=== PATIENT | male | born 1930 | race Caucasian/White ===

== ENCOUNTER 2018-05-09 13:02 | Inpatient (IN) | payer BC ==
[~2018-05-09] VITALS: Ht 182.9 cm; Wt 78.9 kg
[~2018-05-09 13:02] MED LIST: ALEN70TA55 PO; ALLO300T2 PO; ASPI-498 PO; CHOL20007 PO; FLUO-125 PO; FURO20TA3 PO; GABA100C9 PO; HYDR-3682 PO; LANT500C PO; MUPI2CRE17 EX; OME20T PO
[2018-05-09] MEDS ORDERED: SODIUM CHLORIDE 0.9% 1,000 ML IV ONE (13:17)
[2018-05-09 14:28] LABS: Basophils # (auto) 0 uL; Basophils % (auto) 0.6 % (0.0-2.0); Eosinophils # (auto) 0 uL; Hemoglobin 9.5 g/dL (13.5-17.5); Lymphocytes # (auto) 0.5 uL; Mean Corpuscular Hgb Conc. 32.3 g/dL (32.0-36.0); Neutrophils # (auto) 3.8 uL; Red Blood Cells 2.77 10^6/uL (4.5-5.90); White Blood Cell 4.9 10^3/uL (4.4-10.8)
[2018-05-09 14:30] LABS: Eosinophils % (auto) 0.8 % (0.0-7.0); Hematocrit 29.5 % (41.0-53.0); Lymphocytes % (auto) 9.6 % (10.0-50.0); Mean Corpuscular Hemoglobin 34.3 pg (28.0-32.0); Mean Corpuscular Volume 106.4 fL (80.0-100.0); Monocytes # (auto) 0.5 uL; Monocytes % (auto) 10.4 % (0.0-12.0); Neutrophils % (auto) 78.6 % (37.0-80.0); Nucleated Red Blood Cells % 0.1 %; Platelet Count (auto) 175 10^3/uL (140-450); Red Cell Distribution Width 16.7 % (11.8-14.3)
[2018-05-09 14:36] LABS: Lactic Acid w/Reflex 2.4 mmol/L (0.4-2.0)
[2018-05-09 14:37] LABS: INR 1.05 (0.9-1.15); Partial Thromboplastin Time 31.5 sec (23.78-33.04); Prothrombin Time 11.2 sec (9.27-12.13)
[2018-05-09 15:11] LABS: Albumin 2.5 g/dL (3.4-5.0); BUN/Creatinine Ratio 7.4; Bilirubin, Total 0.6 mg/dL (0.2-1.0); Calcium 7.7 mg/dL (8.5-10.1); Potassium 3.8 mmol/L (3.5-5.1); Total Protein 6.6 g/dL (6.4-8.2)
[2018-05-09] MEDS ORDERED: ceFAZolin 1GM/50ML 50 ML IV ONE (15:30)
[2018-05-09] MEDS ORDERED: MORPHINE SULF INJ 2 MG/ML SYRINGE 1ML IV PRN ×2 (15:30)
[2018-05-09] MEDS ORDERED: HYDROcodone-ACET 5/325MG TAB PO PRN (15:30)
[2018-05-09] MEDS ORDERED: ONDANSETRON HCL 4 MG/2 ML VIAL IV PRN (15:30)
[2018-05-09] MEDS ORDERED: hydrOXYzine 25 MG TAB or CAP PO PRN (15:30)
[2018-05-09] MEDS ORDERED: NITROGLYCERIN 0.4 MG SL TAB SL PRN (15:30)
[2018-05-09] MEDS: ceFAZolin 1GM/50ML 50 ML IV SCH ×2 (16:27→22:00)
[2018-05-09 22:12] VITALS: BP 115/57
[2018-05-10 04:37] VITALS: BP 112/57
[2018-05-10 06:29] LABS: BUN/Creatinine Ratio 8.6; Calcium 7.7 mg/dL (8.5-10.1); Potassium 3.8 mmol/L (3.5-5.1)
[2018-05-10] MEDS: ceFAZolin 1GM/50ML 50 ML IV SCH ×3 (06:38→22:54)
[2018-05-10 08:00] VITALS: BP 106/58
[2018-05-10 08:37] VITALS: BP 106/58
[2018-05-10] MEDS ORDERED: SODIUM CHLORIDE 0.9% 500 ML IV ONE (10:00)
[2018-05-10] MEDS ORDERED: SODIUM CHLORIDE 0.9% 1,000 ML IV SCH (10:00)
[2018-05-10] MEDS: GABAPENTIN 100 MG CAP PO SCH (10:02)
[2018-05-10] MEDS: ALLOPURINOL 100 MG TAB PO SCH (10:02)
[2018-05-10] MEDS: PANTOPRAZOLE 40 MG TAB PO SCH (10:02)
[2018-05-10] MEDS: ASPirin 81 mg TAB PO SCH (10:03)
[2018-05-10] MEDS: FLUoxetine HCL 20 MG CAP PO SCH (10:03)
[2018-05-10] MEDS ORDERED: LORazepam 2MG/ML-1ML VIAL IV ONE (10:30)
[2018-05-10] MEDS ORDERED: SODIUM CHL 0.9% 1000 ML BAG XX ONE (11:00)
[2018-05-10] MEDS ORDERED: EPOETIN ALFA 10,000 UNIT/1 ML VIAL IV ONE (11:00)
[2018-05-10 12:00] VITALS: BP 111/55
[2018-05-10] MEDS: FUROSEMIDE 20 MG/2 ML VIAL IV SCH ×2 (15:21→18:00)
[2018-05-10 15:57] VITALS: BP 108/62
[2018-05-10] MEDS: CLINDAMYCIN 600MG IV 50 ML IV SCH ×2 (16:38→22:06)
[2018-05-10] MEDS ORDERED: ALBUMIN 25% 100 ML IV ONE (19:00)
[2018-05-10] MEDS ORDERED: MIDODRINE HCL 10 MG TAB PO ONE (19:45)
[2018-05-10 21:52] VITALS: BP 92/57
[2018-05-11] MEDS ORDERED: SODIUM BICARBONATE 8.4 % INJ 50ML VIAL IV ONE (02:25)
[2018-05-11 04:47] VITALS: BP 101/52
[2018-05-11] MEDS: CLINDAMYCIN 600MG IV 50 ML IV SCH ×3 (05:10→21:41)
[2018-05-11 05:48] LABS: Basophils # (auto) 0 uL; Eosinophils # (auto) 0.1 uL; Lymphocytes # (auto) 0.3 uL; Mean Corpuscular Volume 105.7 fL (80.0-100.0); Monocytes # (auto) 0.5 uL; Neutrophils # (auto) 3.4 uL; Platelet Count (auto) 151 10^3/uL (140-450)
[2018-05-11 05:52] LABS: Basophils % (auto) 0.1 % (0.0-2.0); Eosinophils % (auto) 1.7 % (0.0-7.0); Hematocrit 27.1 % (41.0-53.0); Lymphocytes % (auto) 6.2 % (10.0-50.0); Mean Corpuscular Hemoglobin 34.9 pg (28.0-32.0); Mean Corpuscular Hgb Conc. 33.1 g/dL (32.0-36.0); Monocytes % (auto) 12.6 % (0.0-12.0); Neutrophils % (auto) 79.4 % (37.0-80.0); Nucleated Red Blood Cells % 0.1 %; Red Blood Cells 2.56 10^6/uL (4.5-5.90); White Blood Cell 4.3 10^3/uL (4.4-10.8)
[2018-05-11 06:05] LABS: INR 1.07 (0.9-1.15); Partial Thromboplastin Time 33.6 sec (23.78-33.04); Prothrombin Time 11.4 sec (9.27-12.13)
[2018-05-11 06:07] LABS: BUN/Creatinine Ratio 7.1; Calcium 7.7 mg/dL (8.5-10.1); Phosphorus 3.9 mg/dL (2.5-4.90); Potassium 3.8 mmol/L (3.5-5.1)
[2018-05-11] MEDS: FUROSEMIDE 20 MG/2 ML VIAL IV SCH ×2 (06:20→17:31)
[2018-05-11] MEDS: ceFAZolin 1GM/50ML 50 ML IV SCH (06:20)
[2018-05-11 09:00] VITALS: BP 97/59
[2018-05-11] MEDS: GABAPENTIN 100 MG CAP PO SCH (09:58)
[2018-05-11] MEDS: FLUoxetine HCL 20 MG CAP PO SCH (09:58)
[2018-05-11] MEDS: ASPirin 81 mg TAB PO SCH (09:58)
[2018-05-11] MEDS: PANTOPRAZOLE 40 MG TAB PO SCH (09:58)
[2018-05-11] MEDS: ALLOPURINOL 100 MG TAB PO SCH (09:58)
[2018-05-11] MEDS: MULTIPLE VITAMINS W/ MINERALS TAB PO SCH (09:58)
[2018-05-11] MEDS ORDERED: LEVOFLOXACIN 500MG 100 ML IV ONE (10:00)
[2018-05-11] MEDS ORDERED: CLIN1CAP4 PO (11:06)
[2018-05-11] MEDS ORDERED: LEVO250T45 PO (11:06)
[2018-05-11 13:00] VITALS: BP 113/49
[2018-05-11 17:00] VITALS: BP 100/51
[2018-05-11 20:47] VITALS: BP 93/52
[2018-05-12 04:59] VITALS: BP 97/50
[2018-05-12] MEDS: CLINDAMYCIN 600MG IV 50 ML IV SCH ×2 (05:36→14:23)
[2018-05-12] MEDS: FUROSEMIDE 20 MG/2 ML VIAL IV SCH (05:37)
[2018-05-12 09:00] VITALS: BP 87/47
[2018-05-12] MEDS: PANTOPRAZOLE 40 MG TAB PO SCH (09:42)
[2018-05-12] MEDS: ALLOPURINOL 100 MG TAB PO SCH (09:42)
[2018-05-12] MEDS: FLUoxetine HCL 20 MG CAP PO SCH (09:42)
[2018-05-12] MEDS: ASPirin 81 mg TAB PO SCH (09:42)
[2018-05-12] MEDS: GABAPENTIN 100 MG CAP PO SCH (09:42)
[2018-05-12] MEDS: MULTIPLE VITAMINS W/ MINERALS TAB PO SCH (09:42)
[2018-05-12] MEDS ORDERED: LEVOFLOXACIN 250MG 50 ML IV SCH (10:00)
[2018-05-12 13:00] VITALS: BP 101/58
[2018-05-12 14:11] VITALS: BP 101/58
[2018-05-12 17:00] VITALS: BP 100/51
== END 2018-05-12 17:30 | disposition home health service (06) | DRG 871 ==
LOC: ER 13:02 → TELE 13:03 → TELE-CENTR 20:14
PROVIDERS: ADMIT Internal Medicine; ATTEND Internal Medicine
PROC: 5A1D70Z Performance of Urinary Filtration, Intermittent, Less than 6 Hours Per Day (ICD-10-PCS; principal; 2018-05-10)
DX: A41.9 Sepsis, unspecified organism (principal); I50.43 Acute on chronic combined systolic (congestive) and diastolic (congestive) heart failure; N18.6 End stage renal disease; L03.115 Cellulitis of right lower limb; J96.10 Chronic respiratory failure, unspecified whether with hypoxia or hypercapnia; E44.0 Moderate protein-calorie malnutrition; I13.2 Hypertensive heart and chronic kidney disease with heart failure and with stage 5 chronic kidney disease, or end stage renal disease; M86.8X7 Other osteomyelitis, ankle and foot; I27.20 Pulmonary hypertension, unspecified; D63.1 Anemia in chronic kidney disease; F32.9 Major depressive disorder, single episode, unspecified; I07.1 Rheumatic tricuspid insufficiency; I25.10 Atherosclerotic heart disease of native coronary artery without angina pectoris; I48.91 Unspecified atrial fibrillation; I73.9 Peripheral vascular disease, unspecified; I87.8 Other specified disorders of veins; J44.9 Chronic obstructive pulmonary disease, unspecified; K21.9 Gastro-esophageal reflux disease without esophagitis; G62.9 Polyneuropathy, unspecified; M10.9 Gout, unspecified; M19.90 Unspecified osteoarthritis, unspecified site; M72.2 Plantar fascial fibromatosis; M77.30 Calcaneal spur, unspecified foot; M85.80 Other specified disorders of bone density and structure, unspecified site; Z86.73 Personal history of transient ischemic attack (TIA), and cerebral infarction without residual deficits; Z99.2 Dependence on renal dialysis; Z95.1 Presence of aortocoronary bypass graft; Z79.82 Long term (current) use of aspirin; Z79.899 Other long term (current) drug therapy; Z68.23 Body mass index [BMI] 23.0-23.9, adult
CPT/HCPCS: 36415; 71045; 73700; 73718; 80048; 80053; 83605; 83735; 83880; 84100; 84484; 84550; 85025; 85610; 85730; 87040; 87081; 90935; 93005; 93926; 96361; 96365; J0690; J0885; J1642; J1956; J3490; P9047

== ENCOUNTER 2018-05-16 11:34 | Inpatient (IN) | payer BC ==
[~2018-05-16] VITALS: Ht 182.9 cm; Wt 84.0 kg
[~2018-05-16 11:34] MED LIST changes: +ALEN1TAB32 PO; -ALEN70TA55 PO; +CLIN1CAP4 PO; +LEVO250T19 PO
[2018-05-16 12:55] LABS: Basophils # (auto) 0 uL; Eosinophils # (auto) 0 uL; Eosinophils % (auto) 0.1 % (0.0-7.0); Hemoglobin 9.9 g/dL (13.5-17.5); Monocytes # (auto) 0.5 uL; Red Cell Distribution Width 16.4 % (11.8-14.3)
[2018-05-16 12:57] LABS: Basophils % (auto) 0.4 % (0.0-2.0); Lymphocytes # (auto) 0.2 uL; Lymphocytes % (auto) 3.2 % (10.0-50.0); Mean Corpuscular Hgb Conc. 33.1 g/dL (32.0-36.0); Mean Corpuscular Volume 105.7 fL (80.0-100.0); Monocytes % (auto) 9.6 % (0.0-12.0); Neutrophils # (auto) 4.5 uL; Neutrophils % (auto) 86.7 % (37.0-80.0); Nucleated Red Blood Cells % 0.5 %; Platelet Count (auto) 173 10^3/uL (140-450); Red Blood Cells 2.84 10^6/uL (4.5-5.90); White Blood Cell 5.2 10^3/uL (4.4-10.8)
[2018-05-16 13:08] LABS: INR 1.17 (0.9-1.15); Partial Thromboplastin Time 30.3 sec (23.78-33.04); Prothrombin Time 12.4 sec (9.27-12.13)
[2018-05-16 13:11] LABS: Albumin 2.3 g/dL (3.4-5.0); Anion Gap 9 (5-15); Blood Urea Nitrogen 25 mg/dL (7-18); Calcium 7.9 mg/dL (8.5-10.1); Carbon Dioxide 32 mmol/L (21-32); Chloride 99 mmol/L (98-107); Glucose 131 mg/dL (74-106); Potassium 3.6 mmol/L (3.5-5.1); Sodium 140 mmol/L (136-145)
[2018-05-16 13:13] LABS: BUN/Creatinine Ratio 7.5; GFR African American 23 mL/min; GFR Non-African American 19 mL/min
[2018-05-16 13:30] LABS: Alanine Aminotransferase < 6 U/L (16-61); Alkaline Phosphatase 184 U/L (45-117); Aspartate Aminotransferase 29 U/L (15-37); Bilirubin, Total 0.7 mg/dL (0.2-1.0); Total Protein 6.2 g/dL (6.4-8.2)
[2018-05-16] MEDS ORDERED: NITROGLYCERIN 0.4 MG SL TAB SL PRN (14:00)
[2018-05-16] MEDS ORDERED: HYDROcodone-ACET 5/325MG TAB PO PRN (14:00)
[2018-05-16] MEDS ORDERED: MORPHINE SULF INJ 2 MG/ML SYRINGE 1ML IV PRN (14:00)
[2018-05-16] MEDS ORDERED: FUROSEMIDE 40 MG TAB PO ONE (14:00)
[2018-05-16] MEDS ORDERED: ONDANSETRON HCL 4 MG/2 ML VIAL IV PRN (14:15)
[2018-05-16] MEDS ORDERED: ONDANSETRON HCL 4 MG/2 ML VIAL ONE (14:15)
[2018-05-16] MEDS: ceFAZolin 1GM/50ML 50 ML IV SCH ×2 (15:15→22:07)
[2018-05-16 20:00] VITALS: BP 138/53
[2018-05-16 22:00] VITALS: BP 138/53
[2018-05-16] MEDS: ATORVASTATIN 20 MG TAB PO SCH (22:06)
[2018-05-17 05:00] VITALS: BP 118/59
[2018-05-17] MEDS: ceFAZolin 1GM/50ML 50 ML IV SCH ×3 (06:03→21:38)
[2018-05-17 06:42] LABS: BUN/Creatinine Ratio 8.3; Calcium 7.9 mg/dL (8.5-10.1); Potassium 3.6 mmol/L (3.5-5.1)
[2018-05-17] MEDS: GABAPENTIN 100 MG CAP PO SCH (10:50)
[2018-05-17] MEDS: FUROSEMIDE 40 MG TAB PO SCH (10:50)
[2018-05-17] MEDS: ASPirin 81 mg TAB PO SCH (10:50)
[2018-05-17] MEDS: FAMOTIDINE 20 MG TAB PO SCH (10:50)
[2018-05-17] MEDS: FLUoxetine HCL 20 MG CAP PO SCH (10:50)
[2018-05-17] MEDS: ALLOPURINOL 100 MG TAB PO SCH (10:50)
[2018-05-17] MEDS ORDERED: HEPARIN SODIUM (PORCINE) 5000 UNITS/ML 1ML VIAL IV ONE (12:30)
[2018-05-17 12:57] VITALS: BP 114/55
[2018-05-17 13:02] LABS: Basophils # (auto) 0 uL; Lymphocytes # (auto) 0.5 uL; Monocytes # (auto) 0.6 uL
[2018-05-17 13:04] LABS: Basophils % (auto) 0.6 % (0.0-2.0); Eosinophils # (auto) 0.1 uL; Hematocrit 30.8 % (41.0-53.0); Hemoglobin 10.1 g/dL (13.5-17.5); Lymphocytes % (auto) 9.1 % (10.0-50.0); Mean Corpuscular Hgb Conc. 32.9 g/dL (32.0-36.0); Monocytes % (auto) 10.4 % (0.0-12.0); Neutrophils # (auto) 4.3 uL; Neutrophils % (auto) 78.9 % (37.0-80.0); Nucleated Red Blood Cells % 0.5 %; Platelet Count (auto) 173 10^3/uL (140-450); Red Blood Cells 2.88 10^6/uL (4.5-5.90); Red Cell Distribution Width 16.5 % (11.8-14.3); White Blood Cell 5.4 10^3/uL (4.4-10.8)
[2018-05-17 13:05] LABS: Mean Corpuscular Hemoglobin 34.8 pg (28.0-32.0); Mean Corpuscular Volume 106.8 fL (80.0-100.0)
[2018-05-17 13:14] LABS: INR 1.13 (0.9-1.15)
[2018-05-17] MEDS: HEPARIN DRIP/D5W 100UNITS/ML 250 ML IV SCH (13:25)
[2018-05-17 16:19] VITALS: BP 131/77
[2018-05-17 20:00] VITALS: BP 114/75
[2018-05-17] MEDS: ATORVASTATIN 20 MG TAB PO SCH (21:38)
[2018-05-17 22:00] VITALS: BP 114/75
[2018-05-18 02:15] LABS: INR 1.13 (0.9-1.15); Partial Thromboplastin Time 59.4 sec (23.78-33.04)
[2018-05-18 04:39] VITALS: BP 126/79
[2018-05-18] MEDS: ceFAZolin 1GM/50ML 50 ML IV SCH ×3 (05:53→22:13)
[2018-05-18 08:59] LABS: Basophils # (auto) 0 uL; Basophils % (auto) 0.4 % (0.0-2.0); Eosinophils # (auto) 0.1 uL; Eosinophils % (auto) 1.7 % (0.0-7.0); Hematocrit 33.8 % (41.0-53.0); Hemoglobin 10.1 g/dL (13.5-17.5); Lymphocytes # (auto) 0.6 uL; Lymphocytes % (auto) 11.2 % (10.0-50.0); Mean Corpuscular Hgb Conc. 29.9 g/dL (32.0-36.0); Mean Corpuscular Volume 113.7 fL (80.0-100.0); Monocytes # (auto) 0.7 uL; Monocytes % (auto) 12.9 % (0.0-12.0); Neutrophils # (auto) 3.7 uL; Neutrophils % (auto) 73.8 % (37.0-80.0); Nucleated Red Blood Cells % 0.6 %; Platelet Count (auto) 135 10^3/uL (140-450); Red Blood Cells 2.97 10^6/uL (4.5-5.90); Red Cell Distribution Width 17.9 % (11.8-14.3); White Blood Cell 5.1 10^3/uL (4.4-10.8)
[2018-05-18 09:15] VITALS: BP 129/53
[2018-05-18] MEDS: ASPirin 81 mg TAB PO SCH (10:21)
[2018-05-18] MEDS: FUROSEMIDE 40 MG TAB PO SCH (10:21)
[2018-05-18] MEDS: GABAPENTIN 100 MG CAP PO SCH (10:22)
[2018-05-18] MEDS: ALLOPURINOL 100 MG TAB PO SCH (10:22)
[2018-05-18] MEDS: FAMOTIDINE 20 MG TAB PO SCH (10:22)
[2018-05-18] MEDS: FLUoxetine HCL 20 MG CAP PO SCH (10:22)
[2018-05-18] MEDS ORDERED: SODIUM CHL 0.9% 1000 ML BAG XX ONE (11:15)
[2018-05-18] MEDS ORDERED: EPOETIN ALFA 10,000 UNIT/1 ML VIAL IV ONE (11:15)
[2018-05-18 11:36] LABS: INR 1.15 (0.9-1.15); Prothrombin Time 12.2 sec (9.27-12.13)
[2018-05-18 11:43] LABS: Partial Thromboplastin Time 70.4 sec (23.78-33.04)
[2018-05-18 11:50] LABS: Phosphorus 6.3 mg/dL (2.5-4.90); Uric Acid 4.3 mg/dL (3.5-7.2)
[2018-05-18 12:50] VITALS: BP 134/71
[2018-05-18] MEDS: HEPARIN DRIP/D5W 100UNITS/ML 250 ML IV SCH (12:51)
[2018-05-18 16:40] LABS: INR 1.13 (0.9-1.15); Partial Thromboplastin Time 64.6 sec (23.78-33.04)
[2018-05-18 17:14] VITALS: BP 145/63
[2018-05-18 20:00] VITALS: BP 129/53
[2018-05-18 22:00] VITALS: BP 143/61
[2018-05-18] MEDS: ATORVASTATIN 20 MG TAB PO SCH (22:13)
[2018-05-19] MEDS: HEPARIN DRIP/D5W 100UNITS/ML 250 ML IV SCH (03:17)
[2018-05-19 05:00] VITALS: BP 109/47
[2018-05-19] MEDS: ceFAZolin 1GM/50ML 50 ML IV SCH ×3 (05:36→21:53)
[2018-05-19 06:58] LABS: INR 1.16 (0.9-1.15); Prothrombin Time 12.3 sec (9.27-12.13)
[2018-05-19 07:02] LABS: Partial Thromboplastin Time 84.3 sec (23.78-33.04)
[2018-05-19 09:00] VITALS: BP 102/61
[2018-05-19] MEDS: DOCUSATE SOD 100 MG CAP PO SCH ×2 (10:00→21:54)
[2018-05-19] MEDS: FAMOTIDINE 20 MG TAB PO SCH (10:00)
[2018-05-19] MEDS: FLUoxetine HCL 20 MG CAP PO SCH (10:11)
[2018-05-19] MEDS: GABAPENTIN 100 MG CAP PO SCH (10:11)
[2018-05-19] MEDS: FUROSEMIDE 40 MG TAB PO SCH (10:12)
[2018-05-19] MEDS: ASPirin 81 mg TAB PO SCH (10:12)
[2018-05-19] MEDS: ALLOPURINOL 100 MG TAB PO SCH (10:12)
[2018-05-19 13:00] VITALS: BP 102/52
[2018-05-19 14:08] LABS: INR 1.14 (0.9-1.15); Partial Thromboplastin Time 56.5 sec (23.78-33.04); Prothrombin Time 12.1 sec (9.27-12.13)
[2018-05-19 17:00] VITALS: BP 143/91
[2018-05-19] MEDS: SUCRALFATE 1 GM/10 ML ORAL SUSP GT SCH (17:24)
[2018-05-19] MEDS: Pro-Stat SF 30ml Vanilla PO SCH (18:00)
[2018-05-19] MEDS: Nepro With Carbsteady ButterPecan 8oz Carton PO SCH (18:00)
[2018-05-19 20:06] LABS: INR 1.12 (0.9-1.15); Partial Thromboplastin Time 55.8 sec (23.78-33.04); Prothrombin Time 11.9 sec (9.27-12.13)
[2018-05-19] MEDS: B-COMPLEX W/ C & FOLIC ACID(NEPHROVITE TAB) PO SCH (21:53)
[2018-05-19] MEDS: ATORVASTATIN 20 MG TAB PO SCH (21:54)
[2018-05-19] MEDS: ASCORBIC ACID 500 MG TAB PO SCH (21:54)
[2018-05-19 22:00] VITALS: BP 111/57
[2018-05-20] MEDS ORDERED: SODIUM CHL 0.9% 1000 ML BAG XX ONE (04:00)
[2018-05-20] MEDS ORDERED: EPOETIN ALFA 10,000 UNIT/1 ML VIAL IV ONE (04:00)
[2018-05-20 04:51] VITALS: BP 124/65
[2018-05-20] MEDS: SUCRALFATE 1 GM/10 ML ORAL SUSP GT SCH ×2 (06:35→18:55)
[2018-05-20] MEDS: ceFAZolin 1GM/50ML 50 ML IV SCH ×3 (06:39→22:18)
[2018-05-20 07:09] LABS: Basophils # (auto) 0 uL; Monocytes # (auto) 0.6 uL; Monocytes % (auto) 14.2 % (0.0-12.0); Neutrophils # (auto) 3.4 uL; Nucleated Red Blood Cells % 0.2 %; White Blood Cell 4.5 10^3/uL (4.4-10.8)
[2018-05-20 07:11] LABS: Basophils % (auto) 0.6 % (0.0-2.0); Eosinophils # (auto) 0.1 uL; Eosinophils % (auto) 1.3 % (0.0-7.0); Hematocrit 27.9 % (41.0-53.0); Hemoglobin 9.1 g/dL (13.5-17.5); Lymphocytes # (auto) 0.3 uL; Lymphocytes % (auto) 7.8 % (10.0-50.0); Mean Corpuscular Hemoglobin 34.8 pg (28.0-32.0); Mean Corpuscular Hgb Conc. 32.7 g/dL (32.0-36.0); Mean Corpuscular Volume 106.5 fL (80.0-100.0); Neutrophils % (auto) 76.1 % (37.0-80.0); Platelet Count (auto) 133 10^3/uL (140-450); Red Blood Cells 2.62 10^6/uL (4.5-5.90); Red Cell Distribution Width 16.6 % (11.8-14.3)
[2018-05-20 07:17] LABS: BUN/Creatinine Ratio 8.1; Calcium 7.8 mg/dL (8.5-10.1); Magnesium 2.6 mg/dL (1.6-2.6)
[2018-05-20] MEDS: Nepro With Carbsteady ButterPecan 8oz Carton PO SCH ×2 (08:00→18:00)
[2018-05-20] MEDS: Pro-Stat SF 30ml Vanilla PO SCH ×2 (08:00→18:00)
[2018-05-20 08:29] VITALS: BP 120/65
[2018-05-20 09:13] LABS: INR 1.14 (0.9-1.15); Partial Thromboplastin Time 57.6 sec (23.78-33.04); Prothrombin Time 12.1 sec (9.27-12.13)
[2018-05-20] MEDS: ASCORBIC ACID 500 MG TAB PO SCH ×2 (10:34→22:18)
[2018-05-20] MEDS: GABAPENTIN 100 MG CAP PO SCH (10:34)
[2018-05-20] MEDS: ASPirin 81 mg TAB PO SCH (10:34)
[2018-05-20] MEDS: B-COMPLEX W/ C & FOLIC ACID(NEPHROVITE TAB) PO SCH (10:34)
[2018-05-20] MEDS: PANTOPRAZOLE 40 MG TAB PO SCH (10:34)
[2018-05-20] MEDS: HEPARIN DRIP/D5W 100UNITS/ML 250 ML IV SCH (10:34)
[2018-05-20] MEDS: ALLOPURINOL 100 MG TAB PO SCH (10:34)
[2018-05-20] MEDS: FLUoxetine HCL 20 MG CAP PO SCH (10:35)
[2018-05-20] MEDS: FUROSEMIDE 40 MG TAB PO SCH (10:35)
[2018-05-20] MEDS: DOCUSATE SOD 100 MG CAP PO SCH ×2 (10:35→22:18)
[2018-05-20 12:33] VITALS: BP 103/51
[2018-05-20] MEDS ORDERED: GASTROGRAFIN 120 ML SOL ONE (14:26)
[2018-05-20 16:40] VITALS: BP 131/46
[2018-05-20 21:50] VITALS: BP 126/45
[2018-05-20] MEDS: ATORVASTATIN 20 MG TAB PO SCH (22:18)
[2018-05-21 04:43] VITALS: BP 144/98
[2018-05-21] MEDS: SUCRALFATE 1 GM/10 ML ORAL SUSP GT SCH ×2 (05:57→17:25)
[2018-05-21] MEDS: ceFAZolin 1GM/50ML 50 ML IV SCH (05:57)
[2018-05-21 06:12] LABS: INR 1.14 (0.9-1.15); Partial Thromboplastin Time 50.3 sec (23.78-33.04); Prothrombin Time 12.1 sec (9.27-12.13)
[2018-05-21] MEDS: Nepro With Carbsteady ButterPecan 8oz Carton PO SCH ×2 (08:00→18:00)
[2018-05-21] MEDS: Pro-Stat SF 30ml Vanilla PO SCH ×2 (08:00→18:00)
[2018-05-21 09:00] VITALS: BP 111/66
[2018-05-21] MEDS: ALLOPURINOL 100 MG TAB PO SCH (10:00)
[2018-05-21] MEDS: ASPirin 81 mg TAB PO SCH (10:00)
[2018-05-21] MEDS: FLUoxetine HCL 20 MG CAP PO SCH (10:59)
[2018-05-21] MEDS: GABAPENTIN 100 MG CAP PO SCH (11:00)
[2018-05-21] MEDS: B-COMPLEX W/ C & FOLIC ACID(NEPHROVITE TAB) PO SCH (11:01)
[2018-05-21] MEDS: ASCORBIC ACID 500 MG TAB PO SCH ×2 (11:01→21:31)
[2018-05-21] MEDS: PANTOPRAZOLE 40 MG TAB PO SCH (11:02)
[2018-05-21] MEDS: FUROSEMIDE 40 MG TAB PO SCH (11:03)
[2018-05-21] MEDS: DOCUSATE SOD 100 MG CAP PO SCH ×2 (11:03→21:30)
[2018-05-21 11:52] LABS: Basophils # (auto) 0 uL; Eosinophils # (auto) 0 uL; Hemoglobin 9.3 g/dL (13.5-17.5); Lymphocytes # (auto) 0.3 uL; Neutrophils # (auto) 2.8 uL
[2018-05-21 11:54] LABS: Eosinophils % (auto) 1.2 % (0.0-7.0); Lymphocytes % (auto) 8.7 % (10.0-50.0); Mean Corpuscular Hemoglobin 34.2 pg (28.0-32.0); Mean Corpuscular Hgb Conc. 32.1 g/dL (32.0-36.0); Mean Corpuscular Volume 106.8 fL (80.0-100.0); Monocytes # (auto) 0.6 uL; Neutrophils % (auto) 74.1 % (37.0-80.0); Nucleated Red Blood Cells % 0.1 %; Platelet Count (auto) 128 10^3/uL (140-450); Red Blood Cells 2.71 10^6/uL (4.5-5.90); Red Cell Distribution Width 17.4 % (11.8-14.3); White Blood Cell 3.7 10^3/uL (4.4-10.8)
[2018-05-21] MEDS ORDERED: LEVOFLOXACIN 500 MG TAB PO ONE (12:30)
[2018-05-21] MEDS: CARVEDILOL 3.125 MG TAB PO SCH ×2 (12:45→21:31)
[2018-05-21 12:57] VITALS: BP 123/61
[2018-05-21 17:00] VITALS: BP 101/39
[2018-05-21] MEDS: ATORVASTATIN 20 MG TAB PO SCH (21:30)
[2018-05-21 22:05] VITALS: BP 133/72
[2018-05-22] VITALS (7 sets, daily range): BP systolic 104–131; BP diastolic 47–88
[2018-05-22] MEDS: SUCRALFATE 1 GM/10 ML ORAL SUSP GT SCH ×2 (05:58→17:20)
[2018-05-22 07:15] LABS: Basophils # (auto) 0 uL; Basophils % (auto) 0.5 % (0.0-2.0); Eosinophils # (auto) 0.1 uL; Eosinophils % (auto) 1.3 % (0.0-7.0); Hemoglobin 8.7 g/dL (13.5-17.5); Lymphocytes # (auto) 0.2 uL; Monocytes # (auto) 0.6 uL; Nucleated Red Blood Cells % 0.3 %
[2018-05-22 07:17] LABS: Hematocrit 26.5 % (41.0-53.0); Lymphocytes % (auto) 5.4 % (10.0-50.0); Mean Corpuscular Hemoglobin 35.4 pg (28.0-32.0); Mean Corpuscular Hgb Conc. 33.1 g/dL (32.0-36.0); Mean Corpuscular Volume 107.2 fL (80.0-100.0); Monocytes % (auto) 13.8 % (0.0-12.0); Neutrophils # (auto) 3.4 uL; Platelet Count (auto) 118 10^3/uL (140-450); Red Blood Cells 2.47 10^6/uL (4.5-5.90); White Blood Cell 4.3 10^3/uL (4.4-10.8)
[2018-05-22 07:48] LABS: BUN/Creatinine Ratio 8.2; Magnesium 2.7 mg/dL (1.6-2.6); Potassium 4.2 mmol/L (3.5-5.1)
[2018-05-22] MEDS: Nepro With Carbsteady ButterPecan 8oz Carton PO SCH ×2 (08:33→18:00)
[2018-05-22] MEDS: Pro-Stat SF 30ml Vanilla PO SCH ×2 (08:34→18:00)
[2018-05-22] MEDS ORDERED: LEVOFLOXACIN 250 MG TAB PO SCH (10:00)
[2018-05-22] MEDS ORDERED: LEVOFLOXACIN 500 MG TAB PO SCH (11:15)
[2018-05-22] MEDS ORDERED: SODIUM CHL 0.9% 1000 ML BAG XX ONE (12:00)
[2018-05-22] MEDS ORDERED: EPOETIN ALFA 10,000 UNIT/1 ML VIAL IV ONE (12:00)
[2018-05-22] MEDS: ALLOPURINOL 100 MG TAB PO SCH (13:52)
[2018-05-22] MEDS: ASPirin 81 mg TAB PO SCH (13:52)
[2018-05-22] MEDS: B-COMPLEX W/ C & FOLIC ACID(NEPHROVITE TAB) PO SCH (13:52)
[2018-05-22] MEDS: ASCORBIC ACID 500 MG TAB PO SCH ×2 (13:52→21:34)
[2018-05-22] MEDS: GABAPENTIN 100 MG CAP PO SCH (13:52)
[2018-05-22] MEDS: DOCUSATE SOD 100 MG CAP PO SCH ×2 (13:52→21:33)
[2018-05-22] MEDS: FLUoxetine HCL 20 MG CAP PO SCH (13:53)
[2018-05-22] MEDS: PANTOPRAZOLE 40 MG TAB PO SCH (13:53)
[2018-05-22] MEDS: CARVEDILOL 3.125 MG TAB PO SCH ×2 (14:00→21:34)
[2018-05-22] MEDS: FUROSEMIDE 40 MG TAB PO SCH (14:09)
[2018-05-22] MEDS: ATORVASTATIN 20 MG TAB PO SCH (21:33)
[2018-05-23 04:50] VITALS: BP 123/83
[2018-05-23] MEDS: SUCRALFATE 1 GM/10 ML ORAL SUSP GT SCH (04:54)
[2018-05-23 08:34] VITALS: BP 117/50
[2018-05-23] MEDS: B-COMPLEX W/ C & FOLIC ACID(NEPHROVITE TAB) PO SCH (09:35)
[2018-05-23] MEDS: FLUoxetine HCL 20 MG CAP PO SCH (09:36)
[2018-05-23] MEDS: DOCUSATE SOD 100 MG CAP PO SCH (09:36)
[2018-05-23] MEDS: GABAPENTIN 100 MG CAP PO SCH (09:36)
[2018-05-23] MEDS: FUROSEMIDE 40 MG TAB PO SCH (09:36)
[2018-05-23] MEDS: ASPirin 81 mg TAB PO SCH (09:36)
[2018-05-23] MEDS: PANTOPRAZOLE 40 MG TAB PO SCH (09:36)
[2018-05-23] MEDS: ASCORBIC ACID 500 MG TAB PO SCH (09:36)
[2018-05-23] MEDS: ALLOPURINOL 100 MG TAB PO SCH (09:36)
[2018-05-23] MEDS: Nepro With Carbsteady ButterPecan 8oz Carton PO SCH (09:37)
[2018-05-23] MEDS: Pro-Stat SF 30ml Vanilla PO SCH (09:37)
[2018-05-23] MEDS: CARVEDILOL 3.125 MG TAB PO SCH (09:37)
== END 2018-05-23 14:11 | disposition home or self-care (01) | DRG 280 ==
LOC: ER 11:34 → EDBD 11:34 → TELE 11:35 → TELE-WESTW 19:50 → WEST WING 21:07 → TELE-WESTW 21:08
PROVIDERS: ADMIT Internal Medicine; ATTEND Internal Medicine
PROC: 05HB33Z Insertion of Infusion Device into Right Basilic Vein, Percutaneous Approach (ICD-10-PCS; 2018-05-16)
PROC: 5A1D70Z Performance of Urinary Filtration, Intermittent, Less than 6 Hours Per Day (ICD-10-PCS; principal; 2018-05-18)
PROC: 5A1D70Z Performance of Urinary Filtration, Intermittent, Less than 6 Hours Per Day (ICD-10-PCS; 2018-05-20)
PROC: 5A1D70Z Performance of Urinary Filtration, Intermittent, Less than 6 Hours Per Day (ICD-10-PCS; 2018-05-22)
DX: I21.4 Non-ST elevation (NSTEMI) myocardial infarction (principal); N18.6 End stage renal disease; I50.33 Acute on chronic diastolic (congestive) heart failure; J18.9 Pneumonia, unspecified organism; I13.2 Hypertensive heart and chronic kidney disease with heart failure and with stage 5 chronic kidney disease, or end stage renal disease; J96.10 Chronic respiratory failure, unspecified whether with hypoxia or hypercapnia; E44.0 Moderate protein-calorie malnutrition; J44.0 Chronic obstructive pulmonary disease with (acute) lower respiratory infection; K20.9 Esophagitis, unspecified; M10.9 Gout, unspecified; Z99.2 Dependence on renal dialysis; I27.20 Pulmonary hypertension, unspecified; I25.110 Atherosclerotic heart disease of native coronary artery with unstable angina pectoris; D63.1 Anemia in chronic kidney disease; I48.2 Chronic atrial fibrillation; E78.5 Hyperlipidemia, unspecified; J20.9 Acute bronchitis, unspecified; K21.9 Gastro-esophageal reflux disease without esophagitis; K22.4 Dyskinesia of esophagus; Z79.01 Long term (current) use of anticoagulants; Z99.81 Dependence on supplemental oxygen; Z95.1 Presence of aortocoronary bypass graft
CPT/HCPCS: 36415; 71045; 74220; 80048; 80053; 82306; 82962; 83735; 83880; 83970; 84100; 84484; 84550; 85025; 85610; 85730; 87081; 90935; 93005; 96365; 96375; 97110; 97530; A6257; J0690; J0885; J2405

== ENCOUNTER 2018-09-23 14:19 | Inpatient (IN) | payer BC, OTHER ==
[~2018-09-23] VITALS: Ht 180.3 cm; Wt 85.5 kg
[~2018-09-23 14:19] MED LIST changes: -ASPI-498 PO; -CLIN1CAP4 PO; -LEVO250T19 PO
[2018-09-23 17:24] LABS: Basophils # (auto) 0 uL; Basophils % (auto) 0.4 % (0.0-2.0); Eosinophils # (auto) 0 uL; Eosinophils % (auto) 0.6 % (0.0-7.0); Hematocrit 37.9 % (41.0-53.0); Hemoglobin 11.9 g/dL (13.5-17.5); Lymphocytes # (auto) 0.4 uL; Mean Corpuscular Hemoglobin 34.8 pg (28.0-32.0); Mean Corpuscular Hgb Conc. 31.4 g/dL (32.0-36.0); Monocytes # (auto) 0.5 uL; Monocytes % (auto) 9.5 % (0.0-12.0); Neutrophils # (auto) 4.7 uL; Neutrophils % (auto) 82.5 % (37.0-80.0); Nucleated Red Blood Cells % 0.2 %; Platelet Count (auto) 139 10^3/uL (140-450); Red Blood Cells 3.41 10^6/uL (4.5-5.90); Red Cell Distribution Width 18.6 % (11.8-14.3); White Blood Cell 5.7 10^3/uL (4.4-10.8)
[2018-09-23 17:27] LABS: Albumin 2.5 g/dL (3.4-5.0); Calcium 7.9 mg/dL (8.5-10.1); INR 1.12 (0.9-1.15); Partial Thromboplastin Time 36.5 sec (23.78-33.04); Potassium 3.6 mmol/L (3.5-5.1); Prothrombin Time 11.9 sec (9.27-12.13)
[2018-09-23 17:32] LABS: BUN/Creatinine Ratio 7.5; Bilirubin, Total 0.6 mg/dL (0.2-1.0); Total Protein 6.4 g/dL (6.4-8.2)
[2018-09-23] MEDS ORDERED: AZITHROMYCIN 500MG/ 250ML 250 ML IV ONE (17:45)
[2018-09-23] MEDS ORDERED: cefTRIAXone 1GM/50ML D5W 50 ML IV ONE (17:45)
[2018-09-23] MEDS ORDERED: MORPHINE SULFATE 10 MG/ML INJ 1ML SDV IV PRN (18:15)
[2018-09-23] MEDS ORDERED: ONDANSETRON HCL 4 MG/2 ML VIAL IV PRN (18:15)
[2018-09-23] MEDS ORDERED: NITROGLYCERIN 0.4 MG SL TAB SL PRN (18:15)
[2018-09-23] MEDS ORDERED: ASPirin 81 mg TAB PO ONE (18:15)
[2018-09-23 21:18] VITALS: BP 77/41
--- NOTE | 2018-09-23 21:20 | NUR ---
PATIENT ARRIVED FROM ER VIA STRETCHER Telemetry admit from ER KAROLINEPITA MINAYA admitted to Telemetry unit after SBAR received. Patient oriented to Francia Kennedy, primary RN, unit, room, bed, and unit policies regarding patient care and visiting hours. Patient now on continuous telemetry monitoring, tele box #5 and telemetry reading on arrival to unit is SR 84 with right Bundle Branch Block. Patient placed on bedside oxygen, weighed by bed scale and encouraged to call if they need something. All questions and concerns addressed, patient verbalized understanding.
[2018-09-23 22:00] VITALS: BP 77/41
[2018-09-23] MEDS: METOPROLOL TARTRATE 25 MG TAB PO SCH (22:00)
--- NOTE | 2018-09-23 22:00 | NUR ---
[facility] SENT TO LAB
--- NOTE | 2018-09-23 22:30 | NUR ---
[facility] BP 77/41.
[2018-09-23] MEDS: ATORVASTATIN 20 MG TAB PO SCH (22:31)
--- NOTE | 2018-09-23 22:40 | NUR ---
SHORTS WERE RIPPED TO EASE PAIN PER PATIENT REQUEST. LINDY SIMPSON WITNESS AT BEDSIDE.
--- NOTE | 2018-09-23 22:45 | NUR ---
PHOTOS TAKEN, WOUND CARE FORMS SIGNED. SACRAL RIGHT UPPER EXTREMITY (2) LEFT HAND LEFT LOWER EXTREMITY LEFT FOOT RIGHT KNEE RIGHT LOWER EXTREMITY RIGHT FOOT
[2018-09-23] MEDS ORDERED: ALBUMIN 5% 250 ML IV ONE (23:00)
[2018-09-24] VITALS (7 sets, daily range): BP systolic 95–120; BP diastolic 54–71
--- NOTE | 2018-09-24 05:45 | NUR ---
DR SALMERON CALLED. I UPDATED HIM WITH PATIENT LABS AND REASON FOR ADMISSION. DR SALMERON IS AWARE THAT PATIENT HAD DIALYSIS ON 09/23/18. DR SALMERON STATED THAT HE WOULD BE HERE TO SEE HIM TODAY.
[2018-09-24 06:00] LABS: Basophils # (auto) 0 uL; Basophils % (auto) 0.2 % (0.0-2.0); Eosinophils # (auto) 0 uL; Lymphocytes # (auto) 0.3 uL; Mean Corpuscular Hemoglobin 35.1 pg (28.0-32.0)
[2018-09-24 06:04] LABS: Eosinophils % (auto) 0.1 % (0.0-7.0); Hematocrit 37.8 % (41.0-53.0); Lymphocytes % (auto) 3.4 % (10.0-50.0); Mean Corpuscular Hgb Conc. 31.9 g/dL (32.0-36.0); Mean Corpuscular Volume 110.3 fL (80.0-100.0); Monocytes # (auto) 0.7 uL; Monocytes % (auto) 8.9 % (0.0-12.0); Neutrophils % (auto) 87.4 % (37.0-80.0); Nucleated Red Blood Cells % 0.3 %; Platelet Count (auto) 141 10^3/uL (140-450); Red Blood Cells 3.43 10^6/uL (4.5-5.90); Red Cell Distribution Width 18.6 % (11.8-14.3)
[2018-09-24] MEDS: MORPHINE SULFATE 10 MG/ML INJ 1ML SDV IV PRN (06:07)
[2018-09-24 06:16] LABS: BUN/Creatinine Ratio 8.2; Calcium 8.3 mg/dL (8.5-10.1); Potassium 3.6 mmol/L (3.5-5.1)
[2018-09-24] MEDS: GABAPENTIN 100 MG CAP PO SCH (11:34)
[2018-09-24] MEDS: CHOLECALCIFEROL (VITD3) 1,000 UNIT TAB PO SCH (11:34)
[2018-09-24] MEDS: ASPirin 81 mg TAB PO SCH (11:34)
[2018-09-24] MEDS: PANTOPRAZOLE 40 MG TAB PO SCH (11:34)
[2018-09-24] MEDS: FLUoxetine HCL 20 MG CAP PO SCH (11:34)
[2018-09-24] MEDS: ALLOPURINOL 100 MG TAB PO SCH (11:35)
[2018-09-24] MEDS: METOPROLOL TARTRATE 25 MG TAB PO SCH ×2 (11:36→21:42)
--- NOTE | 2018-09-24 12:10 | NUR ---
WOUND CARE NOTE: Wound care in to see patient per wound care request regarding "wound to sacrum and right upper arm skin tear" that are noted present on admission. Bedside nurse took photograph of patient's multiple skin integrity issue upon admission for reference. Patient is 88 years old male admitted s/p Mechanical Fall. Patient is resting in bed in Rm. 290A. He's awake, alert and oriented. He's in no stated pain at this time and he's able to assist in turning and repositioning. His current Srinivas score is 16. Skin assessment done with the assistance of patient's nurse, CALVIN Lainez. Patient noted with multiple, intact, dry scabs to BUE and BLE. His R 2nd toe and R 4th toe are missing with dry intact scabs. Multi dry scabs also noted to his L foot and toes; no drainage or odor noted, left open to air. His BLE has brown hyperpigmented skin down to bilateral foot and toes. 3x3cm Skin tear noted to his Rt upper arm. Wound is red with brown scab, scant sanguinous drainage noted,no odor noted. Cleansed skin tear with NS, patted dry with gauze, applied Thera honey gel and covered with Opti foam gentle dressing. Patient's sacrum has intact skin with non-blanchable redness (Stage 1 pressure injury). Stacia care given, applied Z Guard cream and covered sacrum with Opti foam sacral dressing. Repositioned patient for comfort, redistributed pressure points with pillows. CALVIN Lainez at bedside. RECOMMENDATION: BID/PRN cleaning and application of Z Guard cream to sacrum; Q3Days/PRN dressing change to CARLOS skin tear per MD order, Dietary consult, frequent turning and repositioning schedule as condition permits, redistribute pressure points with pillows,elevate heels on pillows, continue monitoring by wound care while patient is hospitalized. Addendum: 09/24/18 at [facility] by Mckayla Marcum RN Amended: Links added.
--- NOTE | 2018-09-24 16:30 | NUR ---
spoke with technical services representative from [facility]. She wanted to know the plan and if the patient will be discharged. I informed her that there are no plans currently for a discharge and we are still waiting for consults to be filled.
--- NOTE | 2018-09-24 19:15 | NUR ---
ASSUMED PATIENT CARE- NOC SHIFT PATIENT IS IN BED, BED IS LOCKED IN LOWEST POSITION. PATIENT IS RESTING, BREATHS ARE EVEN AND UNLABORED. BED RAILS UP X2 AND HEAD OF BED IS UP >30 DEGREES FOR SAFETY PRECAUTIONS. BEDSIDE TABLE WITHIN REACH, CALL LIGHT WITHIN REACH. DISCUSSED POC WITH PATIENT AND INSTRUCTED PATIENT TO CALL PRN. WILL CONTINUE TO MONITOR Q1H AND PRN. NO S/SX OF DISTRESS, SOB OR PAIN.
[2018-09-24] MEDS: ATORVASTATIN 20 MG TAB PO SCH (21:42)
[2018-09-25] VITALS (15 sets, daily range): BP systolic 77–103; BP diastolic 33–67
[2018-09-25 06:52] LABS: Basophils # (auto) 0 uL; Basophils % (auto) 0.3 % (0.0-2.0); Eosinophils # (auto) 0 uL; Eosinophils % (auto) 0.5 % (0.0-7.0); Lymphocytes # (auto) 0.4 uL; Monocytes # (auto) 0.8 uL
[2018-09-25 06:55] LABS: Hematocrit 36.7 % (41.0-53.0); Hemoglobin 12.1 g/dL (13.5-17.5); Lymphocytes % (auto) 5.1 % (10.0-50.0); Mean Corpuscular Hemoglobin 36.4 pg (28.0-32.0); Mean Corpuscular Volume 110.2 fL (80.0-100.0); Neutrophils # (auto) 6.1 uL; Neutrophils % (auto) 83.1 % (37.0-80.0); Nucleated Red Blood Cells % 0.9 %; Platelet Count (auto) 166 10^3/uL (140-450); Red Blood Cells 3.33 10^6/uL (4.5-5.90); Red Cell Distribution Width 18.3 % (11.8-14.3); White Blood Cell 7.3 10^3/uL (4.4-10.8)
--- NOTE | 2018-09-25 07:00 | NUR ---
Opening Shift Note Assumed care of patient, awake and alert. No S/S of distress/SOB or pain. Instructed on POC and to call for assist PRN, will continue to monitor for changes Q1hr and PRN.
[2018-09-25 07:19] LABS: Calcium 8.8 mg/dL (8.5-10.1); Magnesium 2.1 mg/dL (1.6-2.6); Potassium 4.4 mmol/L (3.5-5.1)
--- NOTE | 2018-09-25 08:00 | NUR ---
Dr. Ro at bedside performed needle aspiration of right knee at bedside. specimen collected and sent to lab. awaiting further orders and results. patient tolerated well, experiencing only minimal discomfort. will continue to monitor puncture site for any abnormalities.
[2018-09-25] MEDS: GABAPENTIN 100 MG CAP PO SCH (10:04)
[2018-09-25] MEDS: PANTOPRAZOLE 40 MG TAB PO SCH (10:04)
[2018-09-25] MEDS: ALLOPURINOL 100 MG TAB PO SCH (10:04)
[2018-09-25] MEDS: CHOLECALCIFEROL (VITD3) 1,000 UNIT TAB PO SCH (10:05)
[2018-09-25] MEDS: FLUoxetine HCL 20 MG CAP PO SCH (10:05)
[2018-09-25] MEDS: ASPirin 81 mg TAB PO SCH (10:05)
[2018-09-25] MEDS: METOPROLOL TARTRATE 25 MG TAB PO SCH ×2 (10:06→22:32)
--- NOTE | 2018-09-25 14:50 | NUR ---
DIALYSIS DIALYSIS NURSE AT BEDSIDE STARTING HEMODIALYSIS
--- NOTE | 2018-09-25 15:21 | NUR ---
Nutrition Assessment/consult Notes please see attached link fro complete assessment Est. Needs based on BW (81 kg): 4613-3773 kcal (30-33 kcal/kgBW), 97-105 gms pro (1.2-1.3 gms/kgBW d/t HD). Will continue to monitor pertinent labs and reassess nutrient need prn Addendum: 09/25/18 at [address] Amended: Links added.
--- NOTE | 2018-09-25 17:24 | NUR ---
DIALYSIS COMPLETE HEMODIALYSIS COMPLETE. RECEIVED REPORT FROM JEREMIAH SIMSPON. NO FLUID TAKEN OFF, 200ML ADDED. DIALYSIS RAN FROM 1455 TO 1655. VS ARE BP 76/41, HR 81, AND 16 RESP.
--- NOTE | 2018-09-25 17:36 | NUR ---
PAGE PAGE OUT TO DR VALENTINO REGARDING PATIENT'S POST DIALYSIS BP OF 76/41. AWAITING CALL BACK.
--- NOTE | 2018-09-25 17:38 | NUR ---
CALLED BACK RECEIVED ORDERS FROM DR VALENTINO. READ BACK AND VERIFIED.
[2018-09-25] MEDS ORDERED: SODIUM CHLORIDE 0.9% 250 ML IV ONE (17:45)
--- NOTE | 2018-09-25 18:00 | NUR ---
patient's blood pressure post 250ml bolus was 70/41. Lowered patient's head of bed and continued to give the patient their 2nd 250ml bolus.
--- NOTE | 2018-09-25 18:15 | NUR ---
2nd bolus infused. blood pressure still 82/37. called Dr. Garcia. I received orders to give one more 250ml bolus. If blood pressure does not come up to greater than systolic BP of 90 than the patient is to be transferred to ICU and placed on levophed drip. Charge nurse Nesha made aware of the situation and Dr. Garcia's orders. Will notify solution coordinator of the Doctor's orders.
--- NOTE | 2018-09-25 20:30 | NUR ---
Opening Shift Note Assumed care of patient, pt lethargic, arousable to voice, oriented x1, pt reoriented to place, time and situation. No S/S of distress/SOB or pain. Instructed on POC and to call for assist PRN, will continue to monitor for changes Q1hr and PRN. BP to be reassessed. Per report, transfer pt to ICU on levophed drip if bp <90mmhg. Continue care.
--- NOTE | 2018-09-25 21:05 | NUR ---
Low bp bolting machine operator Donna informed. Will call house sup for bed.
--- NOTE | 2018-09-25 21:22 | NUR ---
REPORT Report received from CALVIN Rosas.
--- NOTE | 2018-09-25 21:22 | NUR ---
Report given to Karon SIMPSON.
--- NOTE | 2018-09-25 21:30 | NUR ---
PT TRANSFERRED TO ICU RM 105 VIA BED WITH PORTABLE O2 AND ALL PERSONAL BELONGINGS. NO DISTRESS NOTED UPON DEPARTURE.
--- NOTE | 2018-09-25 21:35 | NUR ---
ADMIT TO ICU Pt transported to ICU room via floor bed on portable satellite project site monitor and portable 02. Pt transferred to ICU bed, connected to ICU monitoring and oxygen without incident. Pt weighed by bed scale. Pt A&O x 1, to self. Pt reoriented to time, place, and situation. Pt oriented to Karon Jeffersno RN primary RN, unit, room, bed, and unit policies regarding pt care and visiting hours. All questions and concerns addressed, pt verbalized understanding. Respirations even and unlabored. Pt's BP low. Will start Levophed drip per MD order. See IV spreadsheet and completed physical assessment intervention. Bed locked, in lowest position with top two side rails up, and call light within reach. Pt instructed to maintain bedrest and to utilize call light when in need of assistance. Pt verbalized understanding. All alarms on and audible. Will continue to monitor pt.
[2018-09-25] MEDS ORDERED: NOREPINEPHRINE 8 MG/250ML KIT 250 ML IV ONE ×2 (21:52→22:00)
[2018-09-25] MEDS: NOREPINEPHRINE 8 MG/250ML KIT 250 ML IV SCH (22:15)
--- NOTE | 2018-09-25 22:15 | NUR ---
LEVOPHED DRIP STARTED Levophed drip started at 2 mcg/min per protocol for low BP. Will continue to monitor pt.
[2018-09-25] MEDS: ATORVASTATIN 20 MG TAB PO SCH (22:25)
[2018-09-26] VITALS (88 sets, daily range): BP systolic 84–133; BP diastolic 30–93
[2018-09-26] MEDS: HYDROcodone-ACET 5/325MG TAB PO PRN ×2 (00:33→08:35)
--- NOTE | 2018-09-26 02:40 | NUR ---
IV INSERTION IV access obtained via clean sterile technique by inserting 20 gauge catheter at right forearm after 1 attempt. IV secured properly. No trauma to site noted. Pt tolerated well.
[2018-09-26 03:54] LABS: Basophils # (auto) 0 uL; Basophils % (auto) 0.4 % (0.0-2.0); Eosinophils # (auto) 0.1 uL; Eosinophils % (auto) 0.8 % (0.0-7.0); Lymphocytes # (auto) 0.8 uL; Lymphocytes % (auto) 8.3 % (10.0-50.0); Platelet Count (auto) 240 10^3/uL (140-450)
[2018-09-26 03:57] LABS: Hematocrit 38.9 % (41.0-53.0); Hemoglobin 12.2 g/dL (13.5-17.5); Mean Corpuscular Hemoglobin 35.4 pg (28.0-32.0); Mean Corpuscular Hgb Conc. 31.4 g/dL (32.0-36.0); Mean Corpuscular Volume 112.5 fL (80.0-100.0); Monocytes # (auto) 1.3 uL; Monocytes % (auto) 14.4 % (0.0-12.0); Neutrophils # (auto) 7.1 uL; Neutrophils % (auto) 76.1 % (37.0-80.0); Nucleated Red Blood Cells % 2.1 %; Red Blood Cells 3.46 10^6/uL (4.5-5.90); Red Cell Distribution Width 18.3 % (11.8-14.3); White Blood Cell 9.3 10^3/uL (4.4-10.8)
[2018-09-26 04:47] LABS: BUN/Creatinine Ratio 8.9; Calcium 8.2 mg/dL (8.5-10.1)
--- NOTE | 2018-09-26 05:25 | NUR ---
WOUND PICTURES Multiple dry, skin tears noted to right wrist upon arrival to ICU. Wound pictures taken.
--- NOTE | 2018-09-26 07:13 | NUR ---
REPORT Report given to michael Green RN. Care endorsed.
--- NOTE | 2018-09-26 07:17 | NUR ---
SHIFT OPENING NOTE PATIENT ALERT TO SELF, SQUEEZES HANDS AND WIGGLES FEET WHEN ASKED, 2L NC 02 SATURATION 98%, ABDOMEN SOFT AND NONTENDER. SACRUM NON BLANCHABLE WITH OPTIFOAM APPLIED, EDUCATED PATIENT THAT THIS IS THE BEGINNING OF A PRESSURE ULCER AND NEEDS TO BE TURNED EVERY TWO HOURS WITH NO VERBAL UNDERSTANDING. WILL CONTINUE TO EDUCATE
--- NOTE | 2018-09-26 09:07 | NUR ---
DR. VALENTINO AT BEDSIDE
[2018-09-26] MEDS: ALLOPURINOL 100 MG TAB PO SCH (09:35)
[2018-09-26] MEDS: FLUoxetine HCL 20 MG CAP PO SCH (09:36)
[2018-09-26] MEDS: PANTOPRAZOLE 40 MG TAB PO SCH (09:36)
[2018-09-26] MEDS: GABAPENTIN 100 MG CAP PO SCH (09:36)
[2018-09-26] MEDS: ASPirin 81 mg TAB PO SCH (09:36)
[2018-09-26] MEDS: CHOLECALCIFEROL (VITD3) 1,000 UNIT TAB PO SCH (09:36)
[2018-09-26] MEDS: METOPROLOL TARTRATE 25 MG TAB PO SCH ×2 (09:36→22:00)
[2018-09-26] MEDS: NOREPINEPHRINE 8 MG/250ML KIT 250 ML IV SCH (12:30)
--- NOTE | 2018-09-26 12:53 | NUR ---
PATIENT EATING LUNCH WITH MINIMAL ASSISTANCE
--- NOTE | 2018-09-26 14:38 | NUR ---
JOSE JUAN RODRIGUEZ AT BEDSIDE UPDATED ON PATIENT STATUS. ALL QUESTIONS AND CONCERNS ADDRESSED AT THIS TIME.
--- NOTE | 2018-09-26 16:49 | NUR ---
FAMILY DAUGHTER RAISA AT BEDSIDE, UPDATED ON PATIENT STATUS. ALL QUESTIONS AND CONCERNS ADDRESSED AT THIS TIME
--- NOTE | 2018-09-26 17:46 | NUR ---
PATIENT REPOSITIONED FOR SKIN INTEGRITY
--- NOTE | 2018-09-26 19:00 | NUR ---
Opening shift note Assumed care, laying on bed with his eyes closed, not responding spontaneously to voice at this time with no signs of distress. VS: T 97.4, BP 96/48, R 13, HR 74, on O2/ NC @ 2L/min, SPO2 98%, Levo @ 5.5 mcg/min infusing in the RFA, everett catheter patent and intact draining to a light yossi urine. Bed in lowest position with side rails up, bed alarm on. Will continue care and monitoring.
--- NOTE | 2018-09-26 19:55 | NUR ---
Opens his eyes to voice and mild shaking but confused, unable to recall his name and at this time, unaware of the time, place and situation but can follow simple command like squeezing of hand and moving his extremities. Will continue to monitor and re-orient.
--- NOTE | 2018-09-26 20:00 | NUR ---
Wound care Skin tears in the right wrist and upper arm noted to have minimal serous discharge, cleansed wound with NS and covered with optifoam dressing.
--- NOTE | 2018-09-26 20:30 | NUR ---
Took sips of water about 50ml, no signs of aspiration or choking noted.
--- NOTE | 2018-09-26 21:29 | NUR ---
Pt noted to be confused, removed ekg leads, mitt applied to left hand, connected back to monitor. Re-oriented and safety measures provided.
--- NOTE | 2018-09-26 22:00 | NUR ---
MEDICATION PO MEDS GIVEN, CRUSHED AND MIXED WITH APPLE SAUCE, TOLERATED WELL, NO SIGNS OF ASPIRATION NOTED.
[2018-09-26] MEDS: ATORVASTATIN 20 MG TAB PO SCH (22:09)
--- NOTE | 2018-09-26 22:30 | NUR ---
BP 90/35 HR 71, levo increased to 6mcg/min. Will continue to monitor VS.
[2018-09-27] VITALS (89 sets, daily range): BP systolic 86–123; BP diastolic 34–69
--- NOTE | 2018-09-27 04:00 | NUR ---
Patient bathe/linen change Patient given complete bath. Skin integrity assessed for any changes. Linens and gown changed. Patient repositioned for comfort,bilateral legs offloaded with pillows.
--- NOTE | 2018-09-27 06:00 | NUR ---
LEVOPHED TITRATED AT DESIRED RATED. VS CLOSELY MONITORED.
--- NOTE | 2018-09-27 06:56 | NUR ---
CLOSING SHIFT NOTE RESTING ON BED WITH NO SIGNS OF DISTRESS. LEVOPHED @ 13 MCG/MIN, BP 119/66, HR 88. WILL GIVE THE REPORT TO TONY SIMPSON.
--- NOTE | 2018-09-27 08:00 | NUR ---
OPENING NOTE PATIENT LYING IN BED. PATIENT EASILY AROUSABLE. PATIENT ABLE TO FOLLOW COMMANDS. PATIENT IS UNABLE TO STATE NAME/DATE OF . PATIENT STATES THAT HE KNOWS HE IS IN THE HOSPITAL. PATIENT DOES NOT KNOW CURRENT DATE. PHYSICAL ASSESSMENT DOCUMENTED IN [employer]. PATIENT TOLERATED ICE CHIPS AND DRINKING THROUGH A STRAW WELL. PATIENT TURNED AND REPOSITIONED FOR COMFORT. IV MEDICATIONS DOCUMENTED IN [employer] WITH VITAL SIGNS ASSESSMENT. WILL CONTINUE TO FOLLOW THROUGH WITH PLAN OF CARE.
--- NOTE | 2018-09-27 09:00 | NUR ---
AT BEDSIDE, UPDATED DAUGHTER GRANT ON TELEPHONE.
[2018-09-27] MEDS: GABAPENTIN 100 MG CAP PO SCH (09:55)
[2018-09-27] MEDS: ASPirin 81 mg TAB PO SCH (09:55)
[2018-09-27] MEDS: CHOLECALCIFEROL (VITD3) 1,000 UNIT TAB PO SCH (09:55)
[2018-09-27] MEDS: FLUoxetine HCL 20 MG CAP PO SCH (09:55)
[2018-09-27] MEDS: ALLOPURINOL 100 MG TAB PO SCH (09:55)
[2018-09-27] MEDS: PANTOPRAZOLE 40 MG TAB PO SCH (09:55)
[2018-09-27] MEDS: HYDROcodone-ACET 5/325MG TAB PO PRN ×3 (10:18→23:39)
--- NOTE | 2018-09-27 12:46 | NUR ---
DIALYSIS STARTED AT 1230 BY LOCK PLATER.
--- NOTE | 2018-09-27 15:28 | NUR ---
DIALYSIS COMPLETED. NO FLUID REMOVED.
--- NOTE | 2018-09-27 19:00 | NUR ---
OPENING NOTE ASSUMED CARE OF PATIENT AT THIS TIME. REPORT RECEIVED FROM DAY SHIFT RN. POC REVIEWED WITH PATIENT, HEAD TO TOE ASSESSMENT COMPLETE, SEE INTERVENTION SPREADSHEET FOR COMPLETE DETAILS. AT THIS TIME PT IS ABLE TO PROVIDE NAME, PT DOES NOT KNOW WHERE THE PT IS LOCATED. REPEATEDLY ASKS IF PT IS IN THE RIGHT PLACE AND TO BRING DOCTOR HERE IMMEDIATELY TO TELL HIM IF HE SHOULD BE HERE. PT EASILY CALMED AND REASSURED. PT REMAINS IN AFIB IN THE 90'S. PT ON LEVO AT 7 MCGS. PT ON 2 LTS NC, UNLABORED BREATHING. VSS AT THIS TIME. PT REPORTS PAIN IN BOTH LEGS. PT ABLE TO EXPRESS NEEDS. PT REFUSED DINNER. IV SITES BENIGN AT THIS TIME. BED LOCKED AND IN LOWEST POSITION, SAFETY PRECAUTIONS IN PLACE. BVM AND SUCTION AT BEDSIDE. WILL MONITOR PT CAREFULLY.
--- NOTE | 2018-09-27 20:05 | NUR ---
RHYTHM CHANGE CLOTH INSPECTOR SHOWS RHYTHM CHANGE, POSSIBLE BUNDLE SWITCH WHILE REMAINING IN AFIB. PT DOES NOT SHOW ANY S/S OF DISTRESS OR CHANGE IN VITALS. STRIPS PRINTED AND PLACED IN CHART.
[2018-09-27] MEDS: ATORVASTATIN 20 MG TAB PO SCH (22:14)
[2018-09-27] MEDS: NOREPINEPHRINE 8 MG/250ML KIT 250 ML IV SCH (23:33)
[2018-09-28] VITALS (93 sets, daily range): BP systolic 80–127; BP diastolic 43–67
--- NOTE | 2018-09-28 01:46 | NUR ---
REPORT GIVEN TO NORM SIMPSON IN PATRICE.
[2018-09-28] MEDS: MORPHINE SULFATE 10 MG/ML INJ 1ML SDV IV PRN (02:46)
--- NOTE | 2018-09-28 02:50 | NUR ---
PT TRANSPORTED FROM UNIT BY MANAGER IT TRAINING AND TECH AT THIS TIME.
--- NOTE | 2018-09-28 03:00 | NUR ---
TRANSFER FROM ICU RECEIVED FROM ICU VIA BED ACCOMPANIED BY DENYS MIRZA, AND SERG GUERRA CONNECTED TO BRICK MASON AND PORTABLE O2 WITH NO SIGNS OF DISTRESS, ON LEVOPHED DRIP @ 7 MCG/MIN, RIGHT FOREARM/ARM SKIN TEARS NOTED COVERED WITH OPTIFOAM. BED IN LOWEST POSITION WITH SIDE RAILS UP, BED ALARM ON. WILL CONTINUE TO MONITOR VS AND CARE.
[2018-09-28 05:27] LABS: Eosinophils # (auto) 0.1 uL; Hemoglobin 11.5 g/dL (13.5-17.5); Lymphocytes # (auto) 0.3 uL; Monocytes # (auto) 0.9 uL; Neutrophils # (auto) 5.1 uL; White Blood Cell 6.4 10^3/uL (4.4-10.8)
[2018-09-28 05:30] LABS: Basophils # (auto) 0.1 uL; Basophils % (auto) 1.1 % (0.0-2.0); Hematocrit 35.3 % (41.0-53.0); Lymphocytes % (auto) 4.6 % (10.0-50.0); Mean Corpuscular Hemoglobin 35.5 pg (28.0-32.0); Mean Corpuscular Hgb Conc. 32.6 g/dL (32.0-36.0); Mean Corpuscular Volume 108.9 fL (80.0-100.0); Monocytes % (auto) 13.5 % (0.0-12.0); Neutrophils % (auto) 79.8 % (37.0-80.0); Nucleated Red Blood Cells % 0.2 %; Platelet Count (auto) 197 10^3/uL (140-450); Red Blood Cells 3.24 10^6/uL (4.5-5.90); Red Cell Distribution Width 17.9 % (11.8-14.3)
[2018-09-28 05:47] LABS: BUN/Creatinine Ratio 8.4; Calcium 7.7 mg/dL (8.5-10.1); Magnesium 2.1 mg/dL (1.6-2.6); Potassium 3.9 mmol/L (3.5-5.1)
--- NOTE | 2018-09-28 07:00 | NUR ---
CLOSING SHIFT NOTE RESTING ON BED WITH NO SIGNS OF DISTRESS, STILL ON LEVO DRIP @ 7 MCG/MIN. REPORT GIVEN TO GUTIERREZ SIMPSON.
--- NOTE | 2018-09-28 07:30 | NUR ---
REPORT: REPORT RECEIVED FROM FISHING ROD MARKER RN TO RESUME CARE OF PT.
--- NOTE | 2018-09-28 08:00 | NUR ---
OPEN: ASSESSMENT COMPLETE. SEE NURSING FLOW SHEET FOR UPDATED DETAILS. PT IS ALERT TO SELF, BUT CONFUSED ON PLACE, SITUATION AND TIME. DOES NOT VERBALIZE UNDERSTANDING ON PLAN OF CARE AT TIME AND DOES NOT FOLLOW DIRECTIONS OR COMMANDS AT TIME. ON 4L NC. PT IS ANURIC AND IS A HEMODIALYSIS PATIENT. 20G IV TO LEFT FOREARM, SL. 2ND 20G IV TO LEFT FOREARM RUNNING LEVOPHED GTT AT 7MCG/MIN. ALL MONITORS HOOKED UP AND CONNECTED TO PT FOR CONTINUOUS MONITORING. SHARED POC WITH PT BUT UNABLE TO VERBALIZE UNDERSTANDING AT TIME. CONTINUE CARE FOR SHIFT.
--- NOTE | 2018-09-28 09:23 | NUR ---
MD VISIT: DR. ASH IN AT BEDSIDE. UPDATED ON PT STATUS AND AWARE OF CURRENT FINDINGS. AWARE OF HEMODIALYSIS TOLERANCE YESTERDAY AND BLOOD PRESSURE TODAY ON LEVOPHED GTT AT 7MCG/MIN. NEW ORDERS RECEIVED. PLAN TO CARRY OUT.
--- NOTE | 2018-09-28 09:34 | NUR ---
MD VISIT: DR. VALENTINO IN AT BEDSIDE. UPDATED ON PT STATUS AND AWARE OF CURRENT FINDINGS. AWARE THAT PT CXR RESULTS HAVE RETURNED AND PT DOES HAVE PLEURAL EFFUSION ON BOTH LEFT AND RIGHT SIDE OF CHEST. OK TO CONSULT INTERVENTIONAL RADIOLOGY FOR POSSIBLE THORACENTESIS. UPDATED MD THAT PT REMAINS ON LEVOPHED GTT GOING THROUGH PERIPHERAL VEIN FOR SEVERAL DAYS. DID ASK MD IF IT WAS OK TO INSERT PICC LINE, BUT NOT OK AT TIME UNLESS NEPHROLOGY OK WITH INSERTING. WILL SPEAK TO DR. ASH REGARDING POTENTIAL PICC LINE INSERTION.
--- NOTE | 2018-09-28 09:36 | NUR ---
MD CONTACT/PICC LINE/IV ACCESS: SPOKE TO DR. ASH REGARDING UPDATED STATUS ON LEVOPHEDD GTT RUNNING INTO PERIPHERAL VEIN FOR SEVERAL DAYS. ASKED IF PICC WAS ABLE TO BE INSERTED BUT AT THIS TIME, MD WOULD LIKE TO NOT INSERT PICC LINE AND INSTEAD WAIT FOR MIDRIDONE TO WORK FOR APPROX. 24HRS FOR POTENTIAL TITRATION OF LEVOPHED GTT OFF.
--- NOTE | 2018-09-28 10:30 | NUR ---
ORAL CARE/REPOSITION: PROVIDED SKIN CARE, REPOSITION IN BED, TEETH BRUSHED, LINENS CHANGED AND LOTION APPLIED TO SKIN AREAS. PT DOES YELL OUT AT STAFF AND ATTEMPT TO HIT ON OCCASION, BUT AFTER REORIENTATION, PT ABLE TO FOLLOW SIMPLE COMMANDS AND NOT ATTEMPT TO HIT. PROVIDED PT WITH ICE CHIPS AT BEDSIDE AND TOLERATED WELL.
--- NOTE | 2018-09-28 10:48 | NUR ---
FAMILY: SPOKE TO DAUGHTER AFTER VERIFICATION OF PASSWORD. VERBALIZED UNDERSTANDING AFTER ALL QUESTIONS AND CONCERNS WERE ADDRESSED.
[2018-09-28] MEDS: ASPirin 81 mg TAB PO SCH (11:00)
[2018-09-28] MEDS: PANTOPRAZOLE 40 MG TAB PO SCH (11:00)
[2018-09-28] MEDS: FLUoxetine HCL 20 MG CAP PO SCH (11:00)
[2018-09-28] MEDS: GABAPENTIN 100 MG CAP PO SCH (11:00)
[2018-09-28] MEDS: CHOLECALCIFEROL (VITD3) 1,000 UNIT TAB PO SCH (11:00)
[2018-09-28] MEDS: ALLOPURINOL 100 MG TAB PO SCH (11:00)
[2018-09-28] MEDS: MIDODRINE HCL 10 MG TAB PO SCH ×2 (11:18→18:39)
--- NOTE | 2018-09-28 11:34 | NUR ---
RADIOLOGY: CALLED [facility] TO DETERMINE IF CONSULT WAS PLACED FOR RADIOLOGY CONSULT TODAY AND IF SEPERATE ORDER NEEDS TO BE PLACED BY [facility]. LEFT MESSAGE. WAITING FOR CALL BACK.
--- NOTE | 2018-09-28 11:35 | NUR ---
LAB: LAB AT BEDSIDE FOR REPEAT DRAW. LAB FROM EARLIER DRAW CLOTTED OFF AND NOT WORKING.
[2018-09-28 11:56] LABS: INR 1.1 (0.9-1.15); Partial Thromboplastin Time 38.5 sec (23.78-33.04); Prothrombin Time 11.7 sec (9.27-12.13)
--- NOTE | 2018-09-28 12:47 | NUR ---
VISITORS: VISITORS IN AT BEDSIDE. PRIOR TO THEM VISITING, PT CONFUSED, DOES NOT FOLLOW COMMANDS CONSISTENTLY, DOES NOT TELL ME HIS NAME, PLACE OR SITUATION AND NOT AGREEING FOR PLAN OF CARE. WHEN VISITORS DID ARRIVE, HE WAS ABLE TO IDENTIFY EACH ONE BY NAME, FOLLOW THEIR COMMANDS AND APPEARED ALERT TO VISITORS.
--- NOTE | 2018-09-28 13:30 | NUR ---
NUTRITION: PT STATING THAT HE IS NOW HUNGRY AND WOULD LIKE TO TRY AND EAT LUNCH. PROVIDED LUNCH TRAY TO PT AFTER CHOPPING UP SMALL AND ASSISTING WITH FEEDING. PT TOLERATED WELL AND ATE ABOUT 50% OF MEAL. NO COUGHING OR SIGNS OF ASPIRATION.
--- NOTE | 2018-09-28 14:30 | NUR ---
REPOSITION/LINEN CHANGE: PT REPOSITIONED IN BED, REMOVED OLD LINENS, REMOVED SACRAL DRESSING. APPLIED NEW SACRAL DRESSING TO SACRUM, PERFORMED SKIN AND JOSSY-CARE, AND APPLIED NEW LINENS. REPOSITIONED IN BED FOR COMFORT AND PROVIDED PT WITH CALL LIGHT TO WATCH SPORT CHANNEL PER REQUEST. PT MORE ALERT OF SURROUNDINGS AND SELF COMPARED TO THIS AM ON SHIFT.
--- NOTE | 2018-09-28 14:58 | NUR ---
VISITORS: VISITORS LEFT BEDSIDE FOR DAY. CONTACT INFORMATION IN CHART.
--- NOTE | 2018-09-28 15:01 | NUR ---
WOUND PHOTOS: NOTED THAT PT HAS A DTI TO RIGHT HEEL THAT IS PURPLE, SOFT, BOGGY, NON-BLANCHING. PHOTOS TAKEN AND IN CHART. POSITIONED HEEL TO COMPLETELY OFF-LOAD PRESSURE AND LEFT OPEN TO AIR. NO DRAINAGE NOTED.
--- NOTE | 2018-09-28 15:21 | NUR ---
Nutrition Follow-up Notes Wt.: 83.5 kg today. Pt's on oxygen via nasal cannula, asleep, no immediate family member at bedside during rounds this morning. Pt had dialysis yesterday, no signs of distress noted earlier, currently on Renal Standard diet with inadequate PO intake aeb <50% consumed meals (x3) in last 2 days d/t pt refused, per nursing. Noted pt's for active Wound, Radiology and Orthopedic consults. Est. Needs based on BW (81 kg): 9109-0517 kcal (30-33 kcal/kgBW), 97-105 gms pro (1.2-1.3 gms/kgBW d/t HD). Will continue to monitor pertinent labs and reassess nutrient need prn Labs: BUN 30 H, Cr 3.57 H, Ca 7.7 L; 09/24/18 Alb 2.5 L. Skin: Srinivas scale 14, mod risk, pt's right upper arm skin tear per paleologist. Pls refer to sign writer letterer or painter's notes (09/26/18) for further details re: tx plans GI: Pt had 1 BM 09/25/18 per paleologist. PES: Increased nutrient needs r/t current/chronic medical condition aeb ESRD on HD, in pain, mod hypoalbuminemia, <75% consumed meals. Altered nutrition related lab values r/t current/chronic medical condition aeb elev RFT mod hypoalb Will continue to monitor PO intake, skin status, pertinent labs and weight trend. F/u in 3 to 5 days. Rec.: 1.) Consider Nepro Carb Steady 1 carton BID, if pt's PO intake remains inadequate (<75%). 2.) Continue close supervision and feeding assistance prn during meals. 3.) If Albumin level continues trending down, consider Prostat 1 pkt BID. 4.) Consider daily Nephrovite and Asc acid 500 mgs BID. 5.) Refer pt to CDE/RD for further nutrition education and weight monitoring upon discharge. 6.) Continue current plan of care.
--- NOTE | 2018-09-28 17:30 | NUR ---
FAMILY/CODE STATUS: AFTER SPEAKING WITH SON AT BEDSIDE, DETERMINED THAT PT FAMILY WOULD LIKE PT TO BE A CHEMICAL CODE ONLY. FULLY EDUCATED ON ALL OPTIONS, ALL ANSWERS ADDRESSED AND MD INFORMED. DR. VALENTINO AWARE THAT PT IS NOW A CHEMICAL CODE STATUS AND ORDERS RECEIVED. FAMILY ALSO REQUESTING INFORMATION REGARDING POTENTIAL HOSPICE FOR DISCHARGE. DR. NIXON UPDATED AND WILL BE SPEAK TO FAMILY TOMORROW. SOCIAL SERVICE CONSULTED TO SPEAK TO FAMILY FOR FAMILY.
--- NOTE | 2018-09-28 18:30 | NUR ---
NUTRITION: PT SITTING UP IN BED EATING ON OWN. TOLERATING WELL.
--- NOTE | 2018-09-28 18:40 | NUR ---
THORACENTESIS NOTE: THORACENTESIS TO BE SCHEDULED WITH ON SUNDAY. FAMILY IS UNSURE IF THEY WOULD LIKE PROCEDURE TO BE DONE AND NO CONSENT OBTAINED AT TIME. FAMILY WILL NOTIFY STAFF IF THEY WOULD LIKE TO HAVE THE THORACENTESIS ON SUNDAY OR NOT.
--- NOTE | 2018-09-28 19:30 | NUR ---
REPORT: REPORT GIVEN TO SANDFILL OPERATOR SURFACE RN TO RESUME CARE OF PT.
--- NOTE | 2018-09-28 20:00 | NUR ---
SHIFT OPENING NOTE RECEIVED PATIENT AWAKE, ALERT AND ORIENTED X3 SITTING UP IN BED EATING DINNER INDEPENDENTLY. NO SOB, DISTRESS OR PAIN NOTED. ON 2L N/C. CURRENTLY ON LEVOPHED AT 4MCG, BP NOTED TO BE IN THE 80S SO TITRATED TO 5MCG/MIN. PHYSICAL ASSESSMENT COMPLETED, SEE INTERVENTIONS. INSTRUCTED ON POC AND TO CALL FOR ASSIST NEEDED. BED IS IN THE LOWEST POSITION WITH SIDE RAILS UP X2, CALL LIGHT IS WITHIN REACH.
[2018-09-28] MEDS: NOREPINEPHRINE 8 MG/250ML KIT 250 ML IV SCH (21:24)
[2018-09-28] MEDS: ATORVASTATIN 20 MG TAB PO SCH (21:24)
[2018-09-29] VITALS (61 sets, daily range): BP systolic 83–136; BP diastolic 41–91
--- NOTE | 2018-09-29 01:05 | NUR ---
ROUNDS PATIENT IS SITTING UP IN BED SLEEPING. NO SOB, DISTRESS OR PAIN NOTED. 3L N/C. LEVO DRIP AT 4. WILL CONTINUE TO CLOSELY MONITOR.
--- NOTE | 2018-09-29 01:35 | NUR ---
MILD CONFUSION PATIENT BEGAN YELLING ACROSS THE UNIT. WENT TO PATIENTS ROOM AND REORIENTED HIM. INSTRUCTED HIM ON HOW TO USE CALL LIGHT IN CASE HE NEEDS SOMETHING. VERBALIZED UNDERSTANDING. WILL CONTINUE TO CLOSELY MONITOR.
[2018-09-29 05:16] LABS: Basophils # (auto) 0 uL; Eosinophils # (auto) 0.1 uL; Lymphocytes # (auto) 0.3 uL; Monocytes # (auto) 0.8 uL; Neutrophils # (auto) 3.8 uL
[2018-09-29 05:18] LABS: Basophils % (auto) 0.5 % (0.0-2.0); Eosinophils % (auto) 1.4 % (0.0-7.0); Hematocrit 33.8 % (41.0-53.0); Lymphocytes % (auto) 6.4 % (10.0-50.0); Mean Corpuscular Hemoglobin 35.2 pg (28.0-32.0); Mean Corpuscular Hgb Conc. 32.6 g/dL (32.0-36.0); Mean Corpuscular Volume 108.2 fL (80.0-100.0); Neutrophils % (auto) 75.7 % (37.0-80.0); Nucleated Red Blood Cells % 0.5 %; Platelet Count (auto) 150 10^3/uL (140-450); Red Blood Cells 3.12 10^6/uL (4.5-5.90); Red Cell Distribution Width 17.6 % (11.8-14.3)
[2018-09-29 05:39] LABS: Calcium 7.8 mg/dL (8.5-10.1); Potassium 4.1 mmol/L (3.5-5.1)
[2018-09-29 05:45] LABS: Albumin 2.1 g/dL (3.4-5.0); Bilirubin, Total 0.5 mg/dL (0.2-1.0); Total Protein 5.7 g/dL (6.4-8.2)
[2018-09-29] MEDS: MIDODRINE HCL 10 MG TAB PO SCH ×4 (05:47→18:14)
--- NOTE | 2018-09-29 05:55 | NUR ---
MORNING HYGIENE CARE FULL BED BATH DONE. PARTIAL LINEN CHANGE PERFORMED. GOWN CHANGED. PATIENT REPOSITIONED FOR COMFORT. TOLERATED IT WELL.
--- NOTE | 2018-09-29 07:15 | NUR ---
Opening Shift Note: Report received from CALVIN Rodarte. Assumed care of patient, awake, alert, with moments of confusion. No S/S of distress/SOB or pain. Instructed on POC and to call for assist PRN, will continue to monitor for changes Q1hr and PRN. See Px assessment.
--- NOTE | 2018-09-29 07:30 | NUR ---
END OF SHIFT PATIENT IS LAYING IN BED AWAKE. ON LEVO DRIP AT 1MCG/MIN. REPORT GIVEN AND CARE ENDORSED TO LENKA SIMPSON.
[2018-09-29] MEDS ORDERED: SODIUM CHL 0.9% 1000 ML BAG XX ONE (10:00)
[2018-09-29] MEDS: CHOLECALCIFEROL (VITD3) 1,000 UNIT TAB PO SCH (10:02)
[2018-09-29] MEDS: FLUoxetine HCL 20 MG CAP PO SCH (10:02)
[2018-09-29] MEDS: PANTOPRAZOLE 40 MG TAB PO SCH (10:02)
[2018-09-29] MEDS: ALLOPURINOL 100 MG TAB PO SCH (10:05)
--- NOTE | 2018-09-29 10:05 | NUR ---
Dr. Dobson at bedside- Plan for Dialysis tomorrow-try to titrate off Levophed. Now on midodrine.
[2018-09-29] MEDS: ASPirin 81 mg TAB PO SCH (10:06)
[2018-09-29] MEDS: GABAPENTIN 100 MG CAP PO SCH (10:06)
--- NOTE | 2018-09-29 10:24 | NUR ---
Mckayla -wound care nurse at bedside. Waffle boots not good for patient because has edema to lower extremities and will create worsened skin issue to heel. Continue to elevate bilateral lower extremities with pillows.
--- NOTE | 2018-09-29 10:28 | NUR ---
WOUND CARE NOTE: Wound care in to see patient for new skin integrity issue noted by bedside nurse upon assessment. Patient is resting in SDU bed in Rm. 266. His eyes are closed, respond to verbal and tactile stimuli, answer questions and follow direction. Patient is in no stated pain at this time and he appears to be in no pain using [place] Sheriff Faces Pain Scale. His current Srinivas score is 14. Patient noted with 4x5cm intact DTI to R heel; photograph taken by bedside nurse upon discovery. Patient's R heel has dark red , soft boggy to touch, skin is intact, no drainage/odor noted. Patient's RLE is edematous. Unable to apply Olmsted foam boots due to edema; posy boots may cause more skin damage than good. Advised RN Evie to keep patient's BLE offloaded on pillows to help offload pressure and helps with edema. Patient tolerated well. Patient is scheduled for full reevaluation of all other skin issue on Sunday10/01/18. RECOMMENDATION: Keep heels offloaded on pillows while edematous; may apply Volodymyr foam boots when edema subsided, continuation of all other wound care orders prescribed by MD,continue with skin/wound plan of care, continue monitoring by wound care while patient is hospitalized.
[2018-09-29] MEDS: MORPHINE SULFATE 10 MG/ML INJ 1ML SDV IV PRN (11:54)
--- NOTE | 2018-09-29 11:55 | NUR ---
began yelling. reports severe pain in rt leg. unable to reposition due to extreme pain. med with morphine as ordered. cont yelling "just kill me, i want to " asking if he was in [employer] and where was he. reorientation unsuccessful.
--- NOTE | 2018-09-29 12:07 | NUR ---
Dr. Garcia at bedside- Downgrade patient to tele- find out what daughter and son plan for patient.
--- NOTE | 2018-09-29 14:13 | NUR ---
Spoke with daughter Lori and is thinking of having patient go home to hospice, not SNF. However, he needs a hospital bed. They are still deciding for the Thoracentesis tomorrow. Pagegiuseppe Garcia -social service consult ordered and hospice for patient.
--- NOTE | 2018-09-29 15:53 | NUR ---
SBAR report given to CALVIN Linares in Med surg. Patient transferred to room 222 on oxygen. Patient stable.
--- NOTE | 2018-09-29 15:55 | NUR ---
MS admit from [facility] admitted to [facility] after SBAR received. Patient not alert and unable to orient to Milagros Hickey RN primary RN, central unit, room 222, bed B, and unit policies regarding patient care and visiting hours. Patient only responsive to painful stimuli at this time. Per [facility] CALVIN Case patient has been like this after Morphine being given yet VS have been stable. VS continue to be stable at this time as well, 94/53, 103, 93% O2 at 3 L/min, R13, 98.0F. Call light within reach and will continue to monitor.
--- NOTE | 2018-09-29 16:10 | NUR ---
Charge nurse Naty made aware of patient only being arousable to pain at this time. Informed her as well that per [facility] RN Evie her [facility] charge nurse was aware as well. VS continue to be stable will continue to monitor.
--- NOTE | 2018-09-29 18:27 | NUR ---
Attempted to administer 1800 midodrine dose. Patient doesn't stay awake long enough to take medication at this time and is not awake long enough to swallow at this time. patient's BP was 126/69, 105. Will continue to monitor.
--- NOTE | 2018-09-29 18:36 | NUR ---
Dr Garcia was paged and made aware that since patient has arrived from [facility] he has only been responsive to pain. Informed MDthat in [facility] morphine was given and that VS have been stable yet unable to keep patient awake enough to administer medication, Midodrine. Made aware last BP 126/29, P105, R14, oxygen 94% at 3 L/min. Per Dr Garcia patient to be Tele, on aspiration precautions, and to not administer morphine. Will continue to monitor.
--- NOTE | 2018-09-29 19:00 | NUR ---
Patient care and report handed off to Clair SIMPSON. Made aware that patient has only been responsive to pain, and that per Dr Garcia patient on aspiration precautions and to NOT receive any more morphine. Clair SIMPSON stated understanding.
--- NOTE | 2018-09-29 19:25 | NUR ---
RECEIVED PATIENT FROM DAY SHIFT RN. PATIENT RESTING IN BED WITH EYES CLOSED. NO S/S OF DISTRESS NOTED. PATIENT NOT EASY TO AROUSE, ONLY BEEN RESPONSIVE TO PAIN. TRIED REORIENTING PATIENT TIME, PLACE, AND SITUATION. REPOSITIONED PATIENT TO COMFORT. PATIENT YELLING WHEN TURNING HIM. ASPIRATION PRECAUTION AT BEDSIDE. BED IN LOWEST POSITION WITH SIDE RAILS UP X 2. CALL MERINO WITHIN REACH. ALARM ON. CONTINUE TO MONITOR FOR CHANGES Q1H AND PRN.
--- NOTE | 2018-09-29 21:35 | NUR ---
REPOSITIONED PATIENT, PATIENT TOLERATED WELL. CONTINUE TO MONITOR.
[2018-09-29] MEDS: ATORVASTATIN 20 MG TAB PO SCH (22:10)
--- NOTE | 2018-09-29 22:11 | NUR ---
ORAL MEDICATION GIVEN ORDERED. WITH APPLE SAUCE. PATIENT SWALLOWED WELL. NO S/S OF ASPIRATION NOTED. CONTINUE TO MONITOR.
--- NOTE | 2018-09-29 23:45 | NUR ---
REPOSITIONED PATIENT. PATIENT TOLERATED WELL. CONTINUE CARE.
--- NOTE | 2018-09-30 01:02 | NUR ---
PATIENT'S HR WENT UP TO 140S, PATIENT IS SLEEPING. NO S/S OF DISTRESS NOTED. PATIENT IS CHEMICAL CODE ONLY, WILL CONTINUE TO MONITOR.
--- NOTE | 2018-09-30 03:30 | NUR ---
REPOSITIONED PATIENT. PATIENT TOLERATED WELL. CONTINUE CARE.
[2018-09-30 05:00] VITALS: BP 98/47
--- NOTE | 2018-09-30 05:30 | NUR ---
REPOSITIONED PATIENT. PATIENT TOLERATED WELL. CONTINUE CARE.
[2018-09-30] MEDS: MIDODRINE HCL 10 MG TAB PO SCH ×3 (05:46→16:18)
--- NOTE | 2018-09-30 05:48 | NUR ---
ORAL MEDICATION GIVEN ORDERED WITH APPLE SAUCE. PATIENT SWALLOWED WELL. NO S/S OF ASPIRATION NOTED. CONTINUE TO MONITOR.
[2018-09-30 07:16] LABS: Eosinophils # (auto) 0 uL; Eosinophils % (auto) 0.4 % (0.0-7.0); Hematocrit 36.5 % (41.0-53.0); Lymphocytes # (auto) 0.3 uL; Monocytes # (auto) 0.6 uL; Red Cell Distribution Width 17.7 % (11.8-14.3)
[2018-09-30 07:18] LABS: Basophils # (auto) 0.1 uL; Hemoglobin 11.8 g/dL (13.5-17.5); Lymphocytes % (auto) 5.1 % (10.0-50.0); Mean Corpuscular Hemoglobin 35.5 pg (28.0-32.0); Mean Corpuscular Hgb Conc. 32.4 g/dL (32.0-36.0); Mean Corpuscular Volume 109.7 fL (80.0-100.0); Neutrophils # (auto) 4.7 uL; Neutrophils % (auto) 83.5 % (37.0-80.0); Nucleated Red Blood Cells % 0.5 %; Platelet Count (auto) 160 10^3/uL (140-450); Red Blood Cells 3.33 10^6/uL (4.5-5.90); White Blood Cell 5.7 10^3/uL (4.4-10.8)
--- NOTE | 2018-09-30 07:35 | NUR ---
OPENING SHIFT PATIENT IN BED ASLEEP. NO S/S OF DISTRESS, SOB , OR PAIN. RESPIRATIONS EVEN AND UNLABORED. PATIENT IS ON 3 L NASAL CANNULA AND IS CURRENTLY SALINE LOCKED. BED IS IN LOWEST POSITION, SIDE RAILS UP X2, AND CALL LIGHT WITHIN REACH. WILL CONTINUE TO MONITOR Q1 HOUR AND PRN.
[2018-09-30 07:38] LABS: BUN/Creatinine Ratio 8.6; Potassium 4.6 mmol/L (3.5-5.1)
--- NOTE | 2018-09-30 08:10 | NUR ---
DIFFICULTY AROUSING PATIENT PATIENT DOES NOT RESPOND TO NAME. PATIENT MILDLY RESPONDS TO STERNAL RUB. PATIENT HAS BEEN LIKE THIS SINCE [facility] DOWN[facility]ADE PER NOC R.N. REPORT. M.D. AWARE OF SITUATION PER NOC R.N. REPORT WILL CONTINUE TO MONITOR Q1 HOUR AND PRN
[2018-09-30] MEDS ORDERED: SODIUM CHL 0.9% 1000 ML BAG XX ONE (08:45)
[2018-09-30 09:00] VITALS: BP 97/48
--- NOTE | 2018-09-30 09:28 | NUR ---
NAPHTHA WASHING SYSTEM OPERATOR AT BEDSIDE R.N REQUESTS 3BAGS OF ALBUMIN 25% 100ML PER DIALYSIS ORDER. CALLED DR. ASH TO CONFIRM ORDER LEFT A MESSAGE FOR Jhonny
[2018-09-30] MEDS ORDERED: ALBUMIN 25% 100 ML IV ONE (09:30)
[2018-09-30] MEDS: ASPirin 81 mg TAB PO SCH (10:00)
[2018-09-30] MEDS: ALLOPURINOL 100 MG TAB PO SCH (10:00)
[2018-09-30] MEDS: PANTOPRAZOLE 40 MG TAB PO SCH (10:00)
[2018-09-30] MEDS: FLUoxetine HCL 20 MG CAP PO SCH (10:00)
[2018-09-30] MEDS: GABAPENTIN 100 MG CAP PO SCH (10:00)
[2018-09-30] MEDS: CHOLECALCIFEROL (VITD3) 1,000 UNIT TAB PO SCH (10:00)
--- NOTE | 2018-09-30 10:00 | NUR ---
DECREASED B.P DESPITE ALBUMIN ADMINISTRATION PATIENT IS STILL MAINTAINING A LOW BLOOD PRESSURE DR. SHELDON CONTACTED VIA DIALYSIS R.N. ORDERS FOR DOPAMINE GIVEN CHARGE Madiha NOBLES MADE AWARE OF SITUATION KITCHEN HAND MADE AWARE OF SITUATION DOPAMINE INFUSING AT 5CG/KG/MIN WILL CONTINUE TO MONITOR PATIENT AND PATIENT'S VITAL SIGNS Q 15 MINUTES AND PRN Addendum: 09/30/18 at 1619 by Nisha Matos RN 5mcg/kg/min
[2018-09-30] MEDS ORDERED: DOPamine 1600MCG/ML D5W 250 ML IV SCH (10:15)
[2018-09-30] MEDS ORDERED: DOPamine 1600MCG/ML D5W 250 ML IV PRN (10:15)
--- NOTE | 2018-09-30 10:30 | NUR ---
DIALYSIS STOPPED DIALYSIS R.N. STOPPED PROCEDURE DESPITE MEDICATION, PATIENT BLOOD PRESSURE REMAINS DECREASED AT 80/54 mmHG
--- NOTE | 2018-09-30 11:34 | NUR ---
PATIENT REASSESSMENT PATIENT BLOOD PRESSURE IS 104/47 mmHG and HR of 128. Vitals are being cycled q 10 minutes. Family is at bedside. Patient awakes for short periods of time and then returns back to sleep. Patient stated, " just let me go. " Jhonny Garcia and Jhonny Dobson aware of patient's status. Meeting set up with family at 13:00 to discuss hospice
--- NOTE | 2018-09-30 11:54 | NUR ---
PAGED DR. VALENTINO PATIENT WITHDRAWALS FROM TOUCH TO RIGHT ARM. DURING PERIODS OF PATIENT BEING COHERENT, HE SAYS HE HAS PAIN IN RIGHT ARM. MADE Samantha AWARE OF SITUATION ORDERS GIVEN BY Samantha FOR XRAY OR RIGHT EXTREMITY ORDERS READ BACK AND VERIFIED.
--- NOTE | 2018-09-30 12:00 | NUR ---
PO MEDICATIONS HELD PATIENT IS UNABLE TO SWALLOW RISK FOR ASPIRATION P.O MEDICATIONS HELD
--- NOTE | 2018-09-30 12:35 | NUR ---
TRANSFER TO [facility] PATIENT'S FAMILY REQUESTS PATIENT BE IN [facility] FAMILY REQUESTS PATIENT BE STARTED ON NUTRITION DR. VALENTINO MADE AWARE OF FAMILIES REQUEST DUE TO PATIENT'S NEW MEDICATIONS, TRANSFER TO [facility] IS APPROVED AND ORDERED BY Samantha
[2018-09-30 12:59] VITALS: BP 96/46
--- NOTE | 2018-09-30 13:37 | NUR ---
[facility] TRANSFER HELD CHARGE R.N AND ADVERTISING INTERNSHIP SPOKE TO FAMILY AT BEDSIDE FAMILY IS TO DISCUSS OPTIONS WITH HOSPICE AND THEN RELATE THEIR WISHES TO STAFF. FOR NOW PATIENT IS TO STAY ON [facility] FLOOR, PATIENT IS STABLE. BLOOD PRESSURE is 100/50 mmHG Heart Rate is 130 bpm
--- NOTE | 2018-09-30 16:00 | NUR ---
ROUNDS PATIENT IN BED RESTING. NO S/S OF DISTRESS, SOB, OR PAIN. BP IS 100/56 mmHG. Dopamine running at 5mcg/kg/min. Pulse is 91 BPM. Daughter is at bedside. Will continue to monitor q1 hour and prn.
[2018-09-30 17:00] VITALS: BP 110/56
--- NOTE | 2018-09-30 18:49 | NUR ---
END OF SHIFT PATIENT IS ASLEEP IN BED. NO S/S OF DISTRESS, SOB, OR PAIN. RESPIRATIONS EVEN AND UNLABORED. BED IS IN LOWEST POSITION, SIDE RAILS UP X2, AND CALL LIGHT WITHIN REACH. DAUGHTER IS AT BEDSIDE. DOPAMINE INFUSING AT 5 MCG/KG/MIN. WILL ENDORSE CARE TO NOC R.N.
--- NOTE | 2018-09-30 19:45 | NUR ---
Opening Shift Assumed care of patient, asleep at this time, arousable but confused, cooperative to care at this time, respirations unlabored on 3-4 Lpm/NC. Safety ensured, siderails up x3, bed alarm on, call light within reach, will closely monitor
[2018-09-30 22:00] VITALS: BP 98/49
[2018-09-30] MEDS: ATORVASTATIN 20 MG TAB PO SCH (22:00)
--- NOTE | 2018-09-30 23:25 | NUR ---
Attempted to turn to his side, patient started yelling and became confused. Reoriented to time, place and situation, patient desaturated to 80's due to him starting to breath on his mouth. Transferred cannula to his mouth and increased O@ to 4Lpm/NC. Paged RT to come and assess patient. O2 Sat now on the 90's and patient settled down after reorientation. Maintained bed alarm on, call light within reach, will continue to monitor
[2018-10-01 05:00] VITALS: BP 55/41
[2018-10-01 06:00] VITALS: BP 104/38
[2018-10-01] MEDS: MIDODRINE HCL 10 MG TAB PO SCH (06:00)
--- NOTE | 2018-10-01 06:29 | NUR ---
Dressing to sacrum and right hand skin tear changed, turned to his side, will continue care
--- NOTE | 2018-10-01 07:15 | NUR ---
[facility] notified patient bradycardic As this RN was receiving report from NOC RN Alexandra, YUKI Estrella called [place] into room stating she believed the patient passed. Both NOC RN and this RN walked into patient unresponsive, no pulses upon assessment or heart beat noted with auscultation. Dr. Garcia called and stated to call the monotypist hospitalist to pronounce . On-call hospitalist paged through PBX. Family notified of patient beginning to pass, and Delores stated they said to just keep him comfortable, no compressions.
--- NOTE | 2018-10-01 07:22 | NUR ---
YUKI Estrella informed social work administrator RN (while giving report to dayshift RN) that patient is unresponsive and no pulse. Monitor showed HR of 30's, patient is on Chemical code. No heart beat noted per auscultation. Called daughter Becca Hudson to update on patient's status but no answer at this time, left a message to call back. Spoke to patient's son Chapito and updated him on patient's status, YUKI Estrella spoke to Chapito as well. Hospitalist Tacos made aware of the situation
--- NOTE | 2018-10-01 07:41 | NUR ---
Pronounced KANE Balderrama at bedside and pronounced .
--- NOTE | 2018-10-01 07:59 | NUR ---
[employer] called This RN attempted to call computational linguist sent to dispatch as computational linguist does not open until 0810 per [facility] dispatcher. She took down information for patient name, date of , time of , family notified, and this RN's name. Silm stated the computational linguist should call this RN back to provide case number.
--- NOTE | 2018-10-01 08:05 | NUR ---
[facility] called This RN called [facility] speaking to Raegan Tavarez, who obtained all pertinent information and stated the patient is cleared based on his age. She stated he is an uneligable donor. Case # [id number]
--- NOTE | 2018-10-01 08:24 | NUR ---
Son notified of pronounced Chapito, son, notified of pronounced . He stated it will be a couple of hours until they can get here. RN notified that is okay.
--- NOTE | 2018-10-01 09:30 | NUR ---
Family at bedside Family has started to arrive, notified yet to have release from blender helper to clean the patient. Family understands, still going ahead to see patient.
--- NOTE | 2018-10-01 10:19 | NUR ---
Manager Category recalled Manager Category recalled to check on status as family has begun arriving. Jayleen stated they are still working on this case and will call this RN soon.
--- NOTE | 2018-10-01 11:44 | NUR ---
Grocery Stocker recalled Grocery Stocker recalled as no call has been received yet, and the person answering stated the case was cancelled. She stated she would have someone call this RN back.
== END 2018-10-01 14:30 | disposition expired | DRG 913 ==
LOC: EDBD 14:19 → ER 14:23 → TELE 18:19 → TELE-WESTW 21:11 → ICU WEST 09-25 21:38 → DOU IN ICU 09-28 03:00 → TELE-CENTR 09-29 15:50
PROVIDERS: ADMIT Nurse Practitioner Acute Care; ATTEND Internal Medicine
PROC: 5A1D70Z Performance of Urinary Filtration, Intermittent, Less than 6 Hours Per Day (ICD-10-PCS; principal; 2018-09-25)
PROC: 0S9C3ZX Drainage of Right Knee Joint, Percutaneous Approach, Diagnostic (ICD-10-PCS; 2018-09-25)
PROC: 5A1D70Z Performance of Urinary Filtration, Intermittent, Less than 6 Hours Per Day (ICD-10-PCS; 2018-09-27)
PROC: 5A1D70Z Performance of Urinary Filtration, Intermittent, Less than 6 Hours Per Day (ICD-10-PCS; 2018-09-30)
DX: S89.81XA Other specified injuries of right lower leg, initial encounter (principal); E43 Unspecified severe protein-calorie malnutrition; N18.6 End stage renal disease; J18.9 Pneumonia, unspecified organism; G93.41 Metabolic encephalopathy; J44.0 Chronic obstructive pulmonary disease with (acute) lower respiratory infection; I13.2 Hypertensive heart and chronic kidney disease with heart failure and with stage 5 chronic kidney disease, or end stage renal disease; J90 Pleural effusion, not elsewhere classified; R57.9 Shock, unspecified; D63.8 Anemia in other chronic diseases classified elsewhere; M10.9 Gout, unspecified; K21.9 Gastro-esophageal reflux disease without esophagitis; I95.9 Hypotension, unspecified; M19.90 Unspecified osteoarthritis, unspecified site; D64.9 Anemia, unspecified; I50.9 Heart failure, unspecified; R74.8 Abnormal levels of other serum enzymes; L89.619 Pressure ulcer of right heel, unspecified stage; W18.39XA Other fall on same level, initial encounter; D72.829 Elevated white blood cell count, unspecified; Z95.1 Presence of aortocoronary bypass graft; Z99.2 Dependence on renal dialysis; Z68.26 Body mass index [BMI] 26.0-26.9, adult; Y93.89 Activity, other specified; Y92.89 Other specified places as the place of occurrence of the external cause
CPT/HCPCS: 36415; 71045; 73060; 73562; 73700; 76604; 80048; 80053; 80061; 82962; 83735; 84443; 84484; 85025; 85610; 85730; 87040; 87081; 87205; 89051; 90935; 93005; 96374; 96375; A6257; G0378; J0696; J1642; J2405; P9047